=== PATIENT | female | born 1945 | race Caucasian/White ===

== ENCOUNTER 2020-07-23 06:30 | Outpatient (REF) | payer OTHER, SELFPAY ==
[2020-07-23 08:21] LABS: Alanine Aminotransferase 8 U/L (0-31); Albumin Level 4.5 g/dL (3.5-5.0); Alkaline Phosphatase 141 U/L (39-117); Anion Gap 12 (12-20); Aspartate Amino Transferase 24 U/L (5-31); Bilirubin Total 0.7 mg/dL (0.0-1.0); Blood Urea Nitrogen 21 mg/dL (9-16); Calcium 9.5 mg/dL (8.4-10.2); Carbon Dioxide 27 mmol/L (22-29); Chloride 108 mmol/L (96-108); Cholesterol 179 mg/dL; Estimated Glomerular Filt Rate > 60; Glucose Random 95 mg/dL (60-115); HDL Cholesterol 31 mg/dL; LDL Cholesterol Calculated 121 mg/dl; Potassium 3.9 mmol/L (3.3-5.1); Sodium 143 mmol/L (135-145); Total Protein 6.6 g/dL (6.5-8.0); Triglycerides 137 mg/dL
[2020-07-23 08:43] LABS: Free T4 (Free Thyroxine) 0.98 ng/dL (0.71-1.85); Thyroid Stimulating Hormone 1.92 uIU/mL (0.32-4.0)
== END 2020-07-23 06:31 | disposition home or self-care (01) ==
LOC: HO.LAB 06:30
PROVIDERS: PCP Family Medicine; Visit Provider Nurse Practitioner Family
DX: E78.5 Hyperlipidemia, unspecified (principal); E03.9 Hypothyroidism, unspecified
CPT/HCPCS: 36415; 80053; 80061; 84439; 84443

== ENCOUNTER 2020-08-26 08:23 | Outpatient (REF) | payer OTHER, SELFPAY ==
--- NOTE | ~2020-08-26 | MM_ITS ---
EXAMINATION: MM SCREENING DIGITAL BREAST TOMOSYNTHESIS, BILATERAL CLINICAL INFORMATION: Screening. Asymptomatic. The lifetime risk of breast cancer based on the Tyrer-Cuzick Model is 2%. COMPARISON: Mammography: 08/07/2019, 07/31/2018, 06/29/2017, 06/08/2016 TECHNIQUE: Digital breast tomosynthesis is performed in both the craniocaudal and mediolateral oblique views along with computer-aided detection (CAD). Synthesized 2D images are generated from the tomosynthesis. FINDINGS: There are scattered areas of fibroglandular density (ACR BI-RADS breast composition Category b). Parenchymal pattern is similar to prior studies. There is no developing density or interval mass or architectural abnormality. No abnormal calcifications. The axilla and skin contours are unremarkable. No significant changes. MM/MM tomosynthesis screening BI IMPRESSION: No mammographic evidence of malignancy. ASSESSMENT: BI-RADS 1: Negative RECOMMENDATION: Routine annual mammography screening. This patient's information was entered into a reminder system with a target due date for their next mammogram.
--- NOTE | ~2020-08-26 | MM_ITS ---
EXAMINATION: BONE DENSITOMETRY CLINICAL INDICATION: Disorders of bone density and structure. COMPARISON: Baseline BD dated 08/25/2018. TECHNIQUE: Using a [employer] DXA System (software version: 13.1) manufactured by [employer], dual-energy x-ray absorptiometry was performed of the lumbar spine and left hip. The images are of good technical quality. Summary results are attached. FINDINGS: AP SPINE L1-L4: Current: BMD 0.989 g/cm2, Z-score 0.1, T-score -1.6, osteopenia, 4.2% decrease from baseline (<5% change is not significant). Baseline: BMD 1.032 g/cm2. LEFT FEMUR, NECK: Current: BMD 1.044 g/cm2, Z-score 1.9, T-score 0.0, normal. Baseline: BMD 1.047 g/cm2. LEFT FEMUR, TOTAL: Current: BMD 1.028 g/cm2, Z-score 1.8, T-score 0.2, normal, 0.8% decrease from baseline (<5% change is not significant). Baseline: BMD 1.036 g/cm2. IDENTIFIED RISK FACTORS: Early menopause, secondary osteoporosis, hysterectomy, bilateral oophorectomy. HISTORY OF FRACTURE: None listed. MEDICATIONS: Calcium supplements or multivitamin, vitamin D. MM/XR DEXA axial skeleton IMPRESSION: 1. DIAGNOSIS: Osteopenia based on the lowest T-score value of -1.6 in the lumbar spine applying World Health Organization criteria. 2. 10-YEAR FRACTURE RISK PREDICTION, FRAX: Major osteoporotic fracture (clinical spine, forearm, hip or shoulder) 6.7%. Hip fracture 0.5%. 3. Treatment Recommendations: NOF guidelines recommend consideration for treatment in postmenopausal women and men age 50 and older presenting with the following: -A hip or vertebral (clinical or morphometric) fracture. -T-score less than or equal to -2.5 at the femoral neck or spine after appropriate evaluation to exclude secondary causes. -Low bone mass at the hip or spine and a 10-year fracture probability by FRAX of greater than or equal to 3% for hip fracture or greater than or equal to 20% for major osteoporotic fracture based on the [place] adapted WHO algorithm. 4. Other Recommendations: All treatment decisions require clinical judgment and consideration of individual patient factors, including patient preferences, comorbidities, previous drug use, risk factors not captured in the FRAX model (e.g. frailty, falls, vitamin D deficiency, increased bone turnover, interval significant decline in bone density) and possible under or overestimation of fracture risk by FRAX. Additional medical evaluation for secondary cause of low bone mineral density may be appropriate. FUTURE SCAN RECOMMENDATION: People with diagnosed cases of osteoporosis or at high risk for fracture should have regular bone mineral density tests. For patients eligible for Medicare, routine testing is allowed once every 2 years. The testing frequency can be increased to one year for patients who have rapidly progressing disease, those who are receiving or discontinuing medical therapy to restore bone mass, or have additional risk factors.
== END 2020-08-26 08:24 | disposition home or self-care (01) ==
LOC: HO.MAMMO 08:23
PROVIDERS: Visit Provider Nurse Practitioner Family
DX: Z12.31 Encounter for screening mammogram for malignant neoplasm of breast (principal); Z13.820 Encounter for screening for osteoporosis; M85.80 Other specified disorders of bone density and structure, unspecified site; Z78.0 Asymptomatic menopausal state; Z98.890 Other specified postprocedural states; Z79.899 Other long term (current) drug therapy
CPT/HCPCS: 77063; 77067; 77080

== ENCOUNTER 2021-05-07 09:31 | Outpatient (REF) | payer OTHER, SELFPAY ==
[2021-05-07 11:35] LABS: Appearance Urine CLEAR; Color Urine YELLOW; Glucose Urine UA NEG (NEG); Leukocyte Esterase Urine TRACE (NEG); Nitrite Urine NEG (NEG); Specific Gravity - Urine <= 1.005 (1.005-1.025); Urine Blood NEG (NEG); Urine Ketones NEG (NEG); Urine Protein NEG (NEG-TRACE)
[2021-05-07 12:08] LABS: RBC Urine 0 /HPF (0); Squamous Epithelial Cell Urine TRACE /LPF; WBC Urine 0-2 /HPF (0-4)
== END 2021-05-07 09:32 | disposition home or self-care (01) ==
LOC: HO.LAB 09:31
PROVIDERS: PCP Family Medicine; Visit Provider Urology
DX: N39.0 Urinary tract infection, site not specified (principal)
CPT/HCPCS: 81001; 87086

== ENCOUNTER 2021-05-13 07:30 | Outpatient (REF) | payer OTHER, SELFPAY ==
[2021-05-13 08:58] LABS: Alanine Aminotransferase 14 U/L (0-31); Albumin Level 4.4 g/dL (3.5-5.0); Alkaline Phosphatase 128 U/L (39-117); Anion Gap 11 (12-20); Aspartate Amino Transferase 27 U/L (5-31); Bilirubin Total 0.6 mg/dL (0.0-1.0); Blood Urea Nitrogen 22 mg/dL (9-16); Calcium 9.5 mg/dL (8.4-10.2); Carbon Dioxide 26 mmol/L (22-29); Chloride 109 mmol/L (96-108); Cholesterol 167 mg/dL; Estimated Glomerular Filt Rate 59; Glucose Random 97 mg/dL (60-115); HDL Cholesterol 32 mg/dL; LDL Cholesterol Calculated 115 mg/dl; Potassium 4.2 mmol/L (3.3-5.1); Sodium 142 mmol/L (135-145); Total Protein 6.4 g/dL (6.5-8.0); Triglycerides 100 mg/dL
[2021-05-13 09:09] LABS: Thyroid Stimulating Hormone 3.99 uIU/mL (0.32-4.0)
== END 2021-05-13 07:31 | disposition home or self-care (01) ==
LOC: HO.LAB 07:30
PROVIDERS: PCP Family Medicine; Visit Provider Nurse Practitioner Family
DX: E03.9 Hypothyroidism, unspecified (principal)
CPT/HCPCS: 36415; 80053; 80061; 84443

== ENCOUNTER 2021-08-27 08:29 | Outpatient (REF) | payer OTHER, SELFPAY ==
--- NOTE | ~2021-08-27 | MM_ITS ---
EXAMINATION: MM SCREENING DIGITAL BREAST TOMOSYNTHESIS, BILATERAL CLINICAL INFORMATION: Screening. Asymptomatic. The lifetime risk of breast cancer based on the Tyrer-Cuzick Model is 2%. COMPARISON: Mammography: August 26, 2020 and studies dating back to October 31, 2013 TECHNIQUE: Digital breast tomosynthesis is performed in both the craniocaudal and mediolateral oblique views along with computer-aided detection (CAD). Synthesized 2D images are generated from the tomosynthesis. FINDINGS: There are scattered areas of fibroglandular density (ACR BI-RADS breast composition Category b). There are no significant masses, abnormal calcifications, or other abnormalities. MM/MM tomosynthesis screening BI IMPRESSION: There are no significant changes from prior study. ASSESSMENT: BI-RADS 1: Negative RECOMMENDATION: Routine annual mammography screening. This patient's information was entered into a reminder system with a target due date for their next mammogram.
== END 2021-08-27 08:30 | disposition home or self-care (01) ==
LOC: HO.MAMMO 08:29
PROVIDERS: Visit Provider Psychiatry & Neurology Psychiatry
DX: Z12.31 Encounter for screening mammogram for malignant neoplasm of breast (principal)
CPT/HCPCS: 77063; 77067

== ENCOUNTER 2021-10-08 06:30 | Outpatient (REF) | payer OTHER, SELFPAY ==
[2021-10-08 07:37] LABS: Hematocrit 34.4 % (37.0-47.0); Hemoglobin 9.8 g/dl (12.0-16.0); Mean Corpuscular HGB Conc 28.5 g/dl (31.0-35.0); Mean Corpuscular Hemoglobin 26.1 pg (27.0-33.0); Mean Corpuscular Volume 91.7 fL (80.0-98.0); Red Blood Count 3.75 X10*6/uL (4.20-5.50); Red Cell Distribution Width 19.8 % (11.0-16.0)
[2021-10-08 07:51] LABS: WBC ABN SCTR FOR CBC 1
[2021-10-08 07:56] LABS: Alanine Aminotransferase 10 U/L (0-31); Albumin Level 4.4 g/dL (3.5-5.0); Alkaline Phosphatase 129 U/L (39-117); Anion Gap 16 (12-20); Aspartate Amino Transferase 23 U/L (5-31); Bilirubin Total 0.7 mg/dL (0.0-1.0); Blood Urea Nitrogen 21 mg/dL (9-16); Calcium 9.3 mg/dL (8.4-10.2); Carbon Dioxide 24 mmol/L (22-29); Chloride 108 mmol/L (96-108); Cholesterol 185 mg/dL; Estimated Glomerular Filt Rate 55; Glucose Fasting 112 mg/dL (60-99); HDL Cholesterol 30 mg/dL; LDL Cholesterol Calculated 129 mg/dl; Sodium 144 mmol/L (135-145); Total Protein 6.4 g/dL (6.5-8.0); Triglycerides 132 mg/dL
[2021-10-08 08:06] LABS: Thyroid Stimulating Hormone 3.62 uIU/mL (0.32-4.0)
[2021-10-08 08:42] LABS: Appearance Urine Turbid; Color Urine Yellow; Glucose Urine UA Negative (Negative); Leukocyte Esterase Urine Negative (Negative); Nitrite Urine Negative (Negative); PH 5.5 (5.0-9.0); Urine Blood Negative (Negative); Urine Ketones Negative (Negative); Urine Protein Negative (Neg-Trace)
[2021-10-08 09:06] LABS: Atypical Lymphs Percent Manual 11 % (0-6); Eosinophils Percent Manual 2 % (0-4); Lymphocytes Percent Manual 84 % (20-40); Neutrophils Percent Manual 3 % (45-73)
[2021-10-08 09:07] LABS: Band Neutrophils Percent 0 % (3-5); RBC Morphology NOTED
[2021-10-08 09:08] LABS: Ovalocytes 1+ (5-14) /OIF; Schistocytes 1+ (0-2) /OIF
[2021-10-08 09:10] LABS: Burr Cells 2+ (3-5) /OIF; Macrocytosis 1+ (5-14) /OIF; Microcytosis 1+ (5-14) /OIF; Smudge Cells PRESENT
[2021-10-08 09:11] LABS: Platelet Estimate DECREASED (NORMAL); Platelet Morphology Comment NORMAL
[2021-10-08 09:20] LABS: Atypical Lymph Absolute Manual 28.3 x10*3/uL; Eosinophils Absolute Manual 5.2 X10*3/uL (0.0-0.4); Lymphocytes Absolute Manual 216.4 X10*3/uL (1.2-4.9); Neutrophils Absolute Manual 7.7 X10*3/uL (2.0-8.3)
[2021-10-08 09:21] LABS: Platelet Count 145 X10*3/uL (160-400)
[2021-10-08 09:30] LABS: Creatinine Urine 200.91 mg/dL; Microalbum/Creatinine Ratio Ur 8.4 ug/mg cr
[2021-10-08 09:35] LABS: White Blood Count 257.6 X10*3/uL (4.8-10.8)
[2021-10-09 23:27] LABS: Triiodothyronine T3 Total 91 ng/dL (76-181)
== END 2021-10-08 06:31 | disposition home or self-care (01) ==
LOC: HO.LAB 06:30
PROVIDERS: PCP Family Medicine; Visit Provider Family Medicine
DX: Z00.00 Encounter for general adult medical examination without abnormal findings (principal); I10 Essential (primary) hypertension; E03.9 Hypothyroidism, unspecified
CPT/HCPCS: 36415; 80053; 80061; 81003; 82043; 84439; 84443; 84480; 85007; 85025; 85027

== ENCOUNTER → 2021-10-26 08:23 | Outpatient (REF) | payer OTHER, SELFPAY ==
--- NOTE | 2021-10-26 08:26 | CA_ITS ---
Transthoracic Echocardiogram Patient (Last, First, Middle): Jackie Elizondo, Gender: Female Date of : 1945 Age: 76 Procedure Date: 10/26/2021 Procedure Type: Transthoracic Echocardiogram Location: OP Height: 172.72 cm Weight: 65.32 kg BSA: 1.78 m2 Heart Rate: bpm BP: 125 / 75 mmHg In Shop Service Technician: JOSH Referring MD: Madhu Zimmerman MD Symptoms: R01.1 - Cardiac murmur, unspecified Study Quality: Fair ECG Rhythm: Sinus tachycardia Conclusions: - The left ventricular systolic function is severely decreased. The visually estimated ejection fraction is between 25-30%. - There is evidence of regional wall motion abnormalities. - The left atrium is severely dilated. - There is mild to moderate mitral valve regurgitation. Findings Procedure Information Contrast agent, definity, is being given per protocol without apparent complications. Left Ventricle Normal left ventricular cavity size. There is mildly increased left ventricular wall thickness. The left ventricular systolic function is severely decreased. The visually estimated ejection fraction is between 25 30%. There is evidence of regional wall motion abnormalities. There is moderate global hypokinesis. Wall Motion Rest Echo Findings The inferoseptal wall, the basal inferior, mid inferior, basal anteroseptal, and mid anteroseptal segments are akinetic. Right Ventricle Normal right ventricular cavity size and systolic function. Atria The left atrium is severely dilated. The right atrium is normal in size. Aortic Valve The aortic valve was not well visualized. There is no aortic valve stenosis. There is no aortic valve regurgitation. Mitral Valve There is mild anterior and posterior mitral leaflet thickening. There is mild to moderate mitral valve regurgitation. There is no mitral valve stenosis. Pulmonic Valve The pulmonic valve is likely normal. Tricuspid Valve There is trace tricuspid valve regurgitation. The pulmonary artery systolic pressure is normal. Great Vessels The asc aorta is normal in size. Venous The inferior vena cava is normal in size and collapses less than 50% with inspiration. Pericardium/Pleural There is no evidence of pericardial effusion. Prior Study Comparison Significant changes compared to prior study dated: 04/15/2017. Decrease in LVEF. See comments on wall motion. Measurements 2D Linear Measurements IVSd: 1.08 0.6-0.9/0.6-1.0 cm LVIDd: 4.77 3.9-5.3/4.2-5.9 cm LVIDd Index: 2.68 2.4-3.2/2.2-3.1 cm/m2 LVIDs: 4.00 2.0-3.6 cm LVPWd: 1.03 0.7-1.1 cm LA Diam: 4.40 2.7-3.8/3.0-4.0 cm LAIDs Index: 2.47 1.5-2.3 cm/m2 LV Mass: 225.81 67-162/88-224 g LV Mass Index: 126.86 43-95/49-115 g/m2 LVOT Diam: 2.10 3.0+(-)1.3 cm 2D Systolic Function EF 4C: 41.80 >55% EF 2C: 43.60 >55% EF BiP: 42.40 >55% Mitral Valve E'Lateral: 12.00 E'Medial: 10.80 MR Vol - PW Dopp: 21.30 MR VTI: 2.13 MR ERO: 10.00 MR Alias Bari: 0.40 MR RAD: 0.50 Aortic Valve AoV Pk Bari: 1.85 AoV Mn Bari: 1.30 AoV VTI: 0.35 AoV Pk Grad: 14.00 Aov Mn Grad: 8.00 RACHID Cont.VTI: 2.00 LVOT LVOT Pk Bari: 1.12 LVOT Mn Bari: 0.75 LVOT VTI: 0.20 LVOT Pk Grad: 5.00 LVOT Mn Grad: 3.00 LVOT Diam: 2.10 LVOT Area: 3.46 Diastolic Function E'Medial: 10.80 E' Laterial: 12.00 Right Ventricle TAPSE (mm): 24.00 TVS' Bari: 20.00 Tricuspid Valve TR Pk Bari: 2.00 TR Pk Grad: 16.00 RA Press: 3.00 RVSP: 19.00 Great Vessels Aorta Ao Asc: 3.50 2.1-3.4 cm Updated in Other Vendor System with Status of Final Dylon Oscar MD electronically signed on 10/26/2021 11:02:06 AM with status of Final
== END ==
LOC: HO.CARD 08:23
PROVIDERS: PCP Family Medicine; Visit Provider Family Medicine
DX: R01.1 Cardiac murmur, unspecified (principal)
CPT/HCPCS: 93306; Q9957

== ENCOUNTER → 2021-11-03 11:03 | Outpatient (BNVA) | payer OTHER, SELFPAY | PROVIDERS: PCP Family Medicine; Referring Provider Family Medicine; Visit Provider Internal Medicine | DX: I42.9 Cardiomyopathy, unspecified (principal); I34.0 Nonrheumatic mitral (valve) insufficiency; I44.7 Left bundle-branch block, unspecified | CPT/HCPCS: 99202 ==

== ENCOUNTER → 2021-12-15 07:35 | Outpatient (REF) | payer OTHER, SELFPAY ==
--- NOTE | ~2021-12-15 | NM_ITS ---
Myocardial perfusion study Indication: Cardiomyopathy to evaluate for myocardial ischemia Technique: The patient was brought in for a Lexiscan perfusion study on 12/15/2021. Patient performed low-level exercise and was injected 0.4 mg of Lexiscan intravenously. Within a minute of injection, 24 mCi of sestamibi was given intravenously. Images were obtained using the SPECT gamma camera interlaced with the gating device. Images were obtained in supine position. Resting perfusion study was performed on 12/15/2021. Patient was administered 8 mCi of sestamibi intravenously at rest. Images were then obtained in supine position. Images obtained with and without CT attenuation. Total DLP 69 mGy-cm. Images were processed with the software and compared side to side in short axis, horizontal long axis and vertical long axis views. Findings: The stress perfusion study showed non attenuated images show normal uptake of radiotracer in all segments of LV myocardium. Attenuation corrected images show minimal thinning of the distal septum of the LV. The gated study shows normal LV systolic function with calculated LVEF of 57%. LV cavity is mildly dilated size. The gated study shows normal systolic wall thickening and contraction of segments. Resting study shows no significant change in perfusion pattern compared to stress perfusion study. Gating at rest reveals systolic wall motion with ejection fraction at 50%. The findings are consistent with normal myocardial perfusion. NM/NM golden perf SPECT rest & str Impression: 1. Myocardial perfusion imaging study shows normal myocardial perfusion 2. Gated LVEF is 57% 3. Transient ischemic dilatation not present EKG is nondiagnostic for ischemia
--- NOTE | 2021-12-15 07:39 | CA_ITS ---
Acquisition Time: 2021-12-15 08:38:00 Total Exercise Time: 00:02:00 Test Indications: ABN ECHO Medications: SIMVASTATIN LEVOTHYROXINE LYSINE Protocol: LEXISCAN Max HR: 123 BPM 84% of Pred: 145 BPM Max BP: 146/072 mmHG Max Work Load: 1.0 METS Pharmacological stress test with Lexiscan injection, while sitting and not moving, without anginal symptoms, with isolated PVCs ( less PVCs noted at higher heart rates) with normotensive response to injection, with heart rate rise to 84% MPHR post injection, with nondiagnostic EKG for ischemia. In recovery she reported headache that was treated with Aminophylline 75mg IVP to reverse Lexiscan with resolution of symptom. Nuclear images pending. Test reviewd with Dr Fleming. Referred By: Dylon Oscar Overread By: FLORIN BRISCOE
== END ==
LOC: HO.CARD 07:35
PROVIDERS: PCP Family Medicine; Visit Provider Internal Medicine
DX: I42.9 Cardiomyopathy, unspecified (principal)
CPT/HCPCS: 78452; 93017; A9500; J0280; J2785

== ENCOUNTER → 2021-12-24 12:28 | Outpatient (BNVA) | payer OTHER, SELFPAY | PROVIDERS: PCP Family Medicine; Referring Provider Family Medicine; Visit Provider Internal Medicine | DX: I42.9 Cardiomyopathy, unspecified (principal); I34.0 Nonrheumatic mitral (valve) insufficiency; I44.7 Left bundle-branch block, unspecified; I10 Essential (primary) hypertension | CPT/HCPCS: 99212 ==

== ENCOUNTER → 2022-05-17 08:57 | Outpatient (BNVA) | payer OTHER, SELFPAY | PROVIDERS: PCP Family Medicine; Referring Provider Family Medicine; Visit Provider Internal Medicine | DX: I42.9 Cardiomyopathy, unspecified (principal); I34.0 Nonrheumatic mitral (valve) insufficiency; I44.7 Left bundle-branch block, unspecified; I10 Essential (primary) hypertension; Z79.899 Other long term (current) drug therapy | CPT/HCPCS: 99212 ==

== ENCOUNTER 2022-05-24 10:27 | Outpatient (REF) | payer OTHER, SELFPAY ==
[2022-05-24 14:18] LABS: Appearance Urine Clear; Color Urine Dark Yellow; Glucose Urine UA Negative (Negative); Leukocyte Esterase Urine Negative (Negative); Nitrite Urine Negative (Negative); PH 6.5 (5.0-9.0); Urine Blood Negative (Negative); Urine Ketones Negative (Negative); Urine Protein Negative (Neg-Trace)
[2022-05-24 14:38] LABS: Alanine Aminotransferase 15 U/L (0-31); Albumin Level 4.6 g/dL (3.5-5.0); Alkaline Phosphatase 139 U/L (39-117); Anion Gap 11 (12-20); Aspartate Amino Transferase 27 U/L (5-31); Bilirubin Total 0.6 mg/dL (0.0-1.0); Blood Urea Nitrogen 22 mg/dL (9-16); Calcium 9.7 mg/dL (8.4-10.2); Carbon Dioxide 27 mmol/L (22-29); Chloride 108 mmol/L (96-108); Estimated Glomerular Filt Rate 55; Glucose Random 110 mg/dL (60-115); Potassium 4.4 mmol/L (3.3-5.1); Sodium 142 mmol/L (135-145); Total Protein 6.3 g/dL (6.5-8.0)
== END 2022-05-24 10:28 | disposition home or self-care (01) ==
LOC: HO.WFDLDS 10:27
PROVIDERS: Visit Provider Family Medicine
DX: Z00.00 Encounter for general adult medical examination without abnormal findings (principal); I10 Essential (primary) hypertension
CPT/HCPCS: 36415; 80053; 81003

== ENCOUNTER → 2022-06-11 07:58 | Outpatient (REF) | payer OTHER, SELFPAY ==
--- NOTE | 2022-06-11 08:00 | CA_ITS ---
Transthoracic Echocardiogram Patient (Last, First, Middle): Jackie Elizondo, Gender: Female Date of : 1945 Age: 76 Procedure Date: 06/11/2022 Procedure Type: Transthoracic Echocardiogram Location: OP Height: 172.72 cm Weight: 67.13 kg BSA: 1.80 m2 Heart Rate: 73 bpm BP: 135 / 75 mmHg Safety Analyst: WALDEMAR Friend MD: Dylon Oscar MD Associate Software Developer: Felton Louis MD Symptoms: I42.9 - Cardiomyopathy, unspecified Study Quality: Good ECG Rhythm: Arrhythmia Conclusions: - 1. Punc-ih-jhaomvnd LV systolic dysfunction with LVEF of 40-45% with impaired relaxation filling pattern 2. Mildly dilated left atrium 3. Rueb-yp-enjzkwgj mitral regurgitation 4. Normal RV systolic pressure 5. Upper limits of normal ascending aortic size 6. No gross pericardial effusion Findings Left Ventricle Normal left ventricular cavity size. There is normal left ventricular wall thickness. The left ventricular systolic function is mild to moderately decreased. The visually estimated ejection fraction is between 40-45%. Spectral Doppler is indicative of an impaired relaxation filling pattern. E/E prime ratio is between 8 and 15 consistent with indeterminate filling pressures. Wall Motion Rest Echo Findings The apex segment is hypokinetic. The inferoseptal wall, inferior wall, and apical septum segment are akinetic. All other scored wall segments showed normal motion. Right Ventricle Normal right ventricular cavity size and systolic function. Atria The left atrium is mildly dilated. There is no evidence of interatrial shunt. The right atrium is normal in size. Aortic Valve The aortic valve structure and function is likely normal. There is no aortic valve stenosis. There is no aortic valve regurgitation. Mitral Valve There is mild anterior and posterior mitral leaflet thickening. The posterior mitral leaflet has restricted mobility. There is mild to moderate mitral valve regurgitation. There is no mitral valve stenosis. Pulmonic Valve The pulmonic valve was not well visualized. Tricuspid Valve Likely normal tricuspid valve structure and function. There is mild tricuspid valve regurgitation. The right ventricular systolic pressure is 15 mmHg. Normal right atrial pressure. There is no evidence of pulmonary hypertension. Great Vessels The pulmonary artery was not well visualized. Venous The inferior vena cava is normal in size and collapses greater than 50% with inspiration. Pericardium/Pleural There is no evidence of pericardial effusion. Prior Study Comparison Changes noted compared to prior study dated: 10/26/2021. LV systolic function has improved. Left atrium is mildly dilated. Measurements 2D Linear Measurements IVSd: 1.02 0.6-0.9/0.6-1.0 cm LVIDd: 4.62 3.9-5.3/4.2-5.9 cm LVIDd Index: 2.57 2.4-3.2/2.2-3.1 cm/m2 LVIDs: 3.37 2.0-3.6 cm LVPWd: 1.02 0.7-1.1 cm LA Diam: 3.10 2.7-3.8/3.0-4.0 cm LAIDs Index: 1.72 1.5-2.3 cm/m2 LV Mass: 204.67 67-162/88-224 g LV Mass Index: 113.71 43-95/49-115 g/m2 LVOT Diam: 2.10 3.0+(-)1.3 cm Mitral Valve MV Pk E: 0.94 MV PK A: 1.26 MV Decel Time: 271.00 E/A: 0.70 E'Lateral: 6.96 E'Medial: 4.13 E/E' Med: 22.60 E/E' Lat: 13.40 PHT: 80.00 MVA PHT: 2.75 Decel Borden: 3.45 MR Vol - PW Dopp: 15.12 MR VTI: 2.16 MR ERO: 7.00 MR Alias Bari: 0.39 MR RAD: 0.40 Aortic Valve AoV Pk Bari: 1.76 AoV Mn Bari: 1.23 AoV VTI: 0.40 AoV Pk Grad: 12.00 Aov Mn Grad: 7.00 RACHID Cont.VTI: 2.21 LVOT LVOT Pk Bari: 1.04 LVOT Mn Bari: 0.77 LVOT VTI: 0.25 LVOT Pk Grad: 4.00 LVOT Mn Grad: 3.00 LVOT Diam: 2.10 LVOT Area: 3.46 Diastolic Function MV Pk E: 0.94 MV Pk A: 1.26 E/A: 0.70 E'Medial: 4.13 E/E' Med: 22.60 E' Laterial: 6.96 E/E' Lat: 13.40 Right Ventricle TAPSE (mm): 31.70 Tricuspid Valve TR Pk Bari: 1.71 TR Pk Grad: 12.00 RA Press: 3.00 RVSP: 15.00 Great Vessels Aorta Sinus of Valsalva: 3.50 2.0-3.5 cm Ao Asc: 3.70 2.1-3.4 cm Pulmonary Valve PV Pk Bari: 1.17 Peak PV Grad: 5.00 Updated in Other Vendor System with Status of Final Felton Louis MD electronically signed on 06/13/2022 12:22:15 PM with status of Final
== END ==
LOC: HO.CARD 07:58
PROVIDERS: PCP Family Medicine; Visit Provider Internal Medicine
DX: I42.9 Cardiomyopathy, unspecified (principal)
CPT/HCPCS: 93306

== ENCOUNTER 2022-08-16 09:26 | Outpatient (AMB) | payer OTHER, SELFPAY ==
[2022-08-16 10:07] VITALS: BP 150/80; PULSE 78; BMI 20.7
--- NOTE | 2022-08-16 10:07 | MHC.OFFVIS ---
Intake Vital Signs 08/16/22 10:07 Height 5 ft 8 in Weight 136 lb 0.403 oz BMI 20.7 BP 150/80 H Blood Pressure Location Lt brachial Position Sitting Pulse 78 Intake Visit Reasons: follow-up after echo Intake Note: follow up w/ EKG [employer] Required: No Accompanied by: Self / Same As Patient Allergies acetaminophen [Vicodin] Allergy (Unknown, Verified 08/16/22 10:08) nausea and vomiting hydrocodone [Vicodin] Allergy (Unknown, Verified 08/16/22 10:08) nausea and vomiting penicillin V Allergy (Unknown, Verified 08/16/22 10:08) nausea and vomiting Codeine Sulfate Allergy (Unknown, Uncoded 08/16/22 10:08) nausea and vomiting Pentothal Allergy (Unknown, Uncoded 08/16/22 10:08) nausea and vomiting Medication List - Last Reconciled 08/16/22 by Dylon Oscar MD calcium citrate-vitamin D3 315 mg-6.25 mcg (250 unit) (Citracal + Vitamin D Maximum) 1 tab PO DAILY carvedilol (Coreg) 3.125 mg PO BID 90 days levothyroxine 50 mcg PO DAILY 90 days lysine 1,000 mg PO DAILY sacubitril-valsartan 24-26 mg (Entresto) 1 tab PO BID 90 days simvastatin 40 mg PO DAILY 90 days HPI HPI Comments History of Present Illness Details Jackie returns for follow-up regarding cardiomyopathy. She was diagnosed with cardiomyopathy in 2021, after getting echocardiogram done for question of cardiac murmur. She has a history of CLL and being followed by Hematology at [facility]. She also has a history of bladder cancer under control. Generally, no specific complaints. No angina or shortness of breath. Nonspecific tiredness. Blood pressure goes up here but she states it is all from anxiety. [facility] Medical History Benign pigmented skin lesion Bladder cancer Chronic lymphocytic leukemia Surgical History History of appendectomy History of hysterectomy Family History Father No problems noted. Mother No problems noted. Social History Housing: Apartment Patient Tobacco Use Status: Never used Tobacco e-Cigarette/Vaping Use: Never Used Second Hand Smoke Exposure: No service: No Current occupational status: unemployed Current occupational exposures/hazards: No Review of Systems Const Denies weakness ENT Denies dizziness Card Denies chest pain, Denies chest pain with activity, Denies syncope, Denies rapid heart rate, Denies pedal edema, Denies edema, Denies leg edema, Denies lightheadedness, Denies palpitations, Denies dyspnea, Denies dyspnea on exertion and Denies orthopnea Resp Denies cough, Denies dyspnea and Denies dyspnea on exertion GI Denies hematochezia and Denies change in stool character Musc Denies abnormal gait, Denies muscle cramps, Denies muscle weakness, Denies numbness, Denies radiating pain into limb and Denies tingling Neuro Denies abnormal gait, Denies dizziness, Denies syncope, Denies numbness, Denies tingling and Denies weakness Endo Denies palpitations Physical Exam Vital Signs: Last Vital Signs Pulse 78 08/16/22 10:07 BP 150/80 H 08/16/22 10:07 BMI result Body Mass Index 20.7 Const General: comfortable and no acute distress Orientation/consciousness: patient oriented x3 HEENT Other: Unremarkable Head: Yes normal to inspection Neck Neck: Yes normal visual inspection Chest Chest palpation & inspection: normal inspection of the chest Resp Auscultation: clear to auscultation bilaterally Cardio Palpation: normal PMI Heart sounds: S1 normal heart sound present, S2 normal heart sound present, no gallops, no murmurs and no rubs GI Palpation (GI): Soft to palpation Back/Spine/Pelvis Other: unremarkable Skin General skin exam: no rashes or lesions noted Neuro General: patient oriented x3 Extrem General: Yes normal to inspection Psych Mental Status: mental status grossly normal Office Procedures EKG Details: EKG with sinus rhythm at 78/Min; slight CT prolongation 240 millisecond; left bundle-branch block pattern; PVCs. [id number], Complete Assessment & Plan Assessment & Plan (1) Cardiomyopathy: Code(s): I42.9 - Cardiomyopathy, unspecified Plan: Most recent echocardiogram with LVEF of 40-45%. Prior to that 25-30%. In the prior echocardiogram from 2018, LVEF was 60-65%. Myocardial perfusion imaging study shows normal perfusion. We will obtain cardiac MRI for further evaluation. Otherwise, continue Coreg and Entresto. We will increase Entresto dosing. Check BMP few days after the dose change. She is only complaining a lot tiredness and fatigue and hence not adding additional medications like spironolactone. No need for diuretics as there is no volume overload. (2) Nonrheumatic mitral valve regurgitation: Code(s): I34.0 - Nonrheumatic mitral (valve) insufficiency Plan: Echocardiogram shows [id number] mitral regurgitation. No specific interventions. (3) LBBB (left bundle branch block): Code(s): I44.7 - Left bundle-branch block, unspecified Plan: Chronic finding. (4) Essential hypertension: Code(s): I10 - Essential (primary) hypertension Plan: She believes there is all from extreme anxiety. Any case, increase in Entresto should help. Orders: Orders MR cardiac morph fnct w con Today I42.9 - Cardiomyopathy, unspecified Medications: New sacubitril-valsartan 49-51 mg (Entresto) 1 tab PO BID 180 tabs 3RF 90 days Discontinued sacubitril-valsartan 24-26 mg (Entresto) Discontinued Reason: Doctor's Order 1 tab PO BID 90 days 180 tabs 3RF Coding Level of Care Code Est Pt Level 4 (98691) Diagnoses Cardiomyopathy I42.9 Nonrheumatic mitral valve regurgitation I34.0 LBBB (left bundle branch block) I44.7 Essential hypertension I10 CPT Codes EKG - CPT: 59202-[id number], Complete ([id number])
== END 2022-08-16 10:29 | disposition home or self-care (01) ==
PROVIDERS: Visit Provider Internal Medicine
DX: I42.9 Cardiomyopathy, unspecified (principal); I34.0 Nonrheumatic mitral (valve) insufficiency; I44.7 Left bundle-branch block, unspecified; I10 Essential (primary) hypertension
CPT/HCPCS: 93010; 99214

== ENCOUNTER → 2022-08-16 09:26 | Outpatient (BNVA) | payer OTHER, SELFPAY | PROVIDERS: Visit Provider Internal Medicine | DX: I42.9 Cardiomyopathy, unspecified (principal); I34.0 Nonrheumatic mitral (valve) insufficiency; I44.7 Left bundle-branch block, unspecified; I10 Essential (primary) hypertension | CPT/HCPCS: 93005; 99212 ==

== ENCOUNTER 2022-08-23 08:47 | Outpatient (AMB) | payer OTHER, SELFPAY ==
[2022-08-23 09:05] VITALS: BP 140/78; PULSE 75; O2SAT 95; BMI 20.4
--- NOTE | 2022-08-23 09:05 | A.OFFPC_ITS ---
Vital Signs 08/23/22 09:05 Height 5 ft 8 in Weight 134 lb 6 oz BMI 20.4 BP 140/78 H Blood Pressure Location Lt brachial Position Sitting Pulse 75 Pulse Source Pulse Oximeter Pulse Oximetry (%) 95 Oxygen Delivery Method Room Air Intake Visit Reasons: f/u hypertension and chronic conditions Intake Note: Patient is here to follow up on hypertension and other chronic conditions. Allergies acetaminophen [Vicodin] Allergy (Unknown, Verified 08/23/22 09:09) nausea and vomiting hydrocodone [Vicodin] Allergy (Unknown, Verified 08/23/22 09:09) nausea and vomiting penicillin V Allergy (Unknown, Verified 08/23/22 09:09) nausea and vomiting Codeine Sulfate Allergy (Unknown, Uncoded 08/23/22 09:09) nausea and vomiting Pentothal Allergy (Unknown, Uncoded 08/23/22 09:09) nausea and vomiting Tobacco use date assessed: 08/23/22 Fall risk assessment: No Falls in past year Last assessed Fall Risk: 08/23/22 Dental Screening Dental Screen Date: 08/23/22 Did you have a dental visit in the last 12 months?: No Did you have a dental problem in the last 6 months where you did not have access to dental care?: No Was dental information given to patient?: No HPI f/u hypertension and chronic conditions HPI Details 76 y/o female presents to f/u hypertension and chronic conditions. Pt has documented white coat syndrome. Blood pressure today 140/78. She is on Entresto and carvedilol 3.125 mg b.i.d. She had seen Cardiology 08/16/22 and they had increased her Entresto. She reports that sometimes when she gets up and open her curtains, she starts seeing stars and sees black in her scope. She denies feeling dizziness today. She states she tries to keep herself hydrated. HPI Comments History of Present Illness Details Documentation assistance for Madhu Zimmerman MD, was provided by Winston Adame,? Document Processor on 08/23/2022 9:40 AM EST. I, Dr. Zimmerman, have read, observed, and verified documentation.? [facility] Medical History Benign pigmented skin lesion Bladder cancer Chronic lymphocytic leukemia Surgical History History of appendectomy History of hysterectomy Family History Father No problems noted. Mother No problems noted. Social History Housing: Apartment Patient Tobacco Use Status: Never used Tobacco e-Cigarette/Vaping Use: Never Used Second Hand Smoke Exposure: No service: No Current occupational status: retired Current occupational exposures/hazards: No Questionnaire Thrive Questionnaire Date Thrive assessed: 03/22/22 MAGED-7 AMB Questionnaire MAGED-7 Date MAGED - 7 assessed: 03/22/22 Source: Developed by Drs. Alvin Brandon, Jeny Chaidez, Mario Lopez and colleagues, with an educational stalin from [employer]. Physical exam (Primary Care) Vital Signs: Last Vital Signs Pulse 75 08/23/22 09:05 BP 140/78 H 08/23/22 09:05 Pulse Ox 95 08/23/22 09:05 Oxygen Delivery Method Room Air 08/23/22 09:05 BMI result Body Mass Index 20.4 Tobacco/Smoking Status: Tobacco use Status Tobacco use date assessed 08/23/22 08/23/22 09:13 Patient Tobacco Use Status Never used Tobacco 08/23/22 09:13 e-Cigarette/Vaping Use Never Used 08/23/22 09:13 Thrive Assessment: Date of Thrive Assessment Date Thrive assessed 03/22/22 08/23/22 09:13 Assessment and Plan Assessment & Plan (1) Essential hypertension: Code(s): I10 - Essential (primary) hypertension Plan: Blood pressure fairly well controlled. She has some white coat syndrome and she knows that her blood pressures are always very well controlled at home. She has some fatigue and also some symptoms of presyncope. This may be secondary to her beta-chencho when she stands up quickly. Advised she standard more slowly. Squeeze muscles of lower extremities prior to standing up. Sit back down if feeling lightheaded. Hydrate well She will let me or her supervisor [employer] know if this persists (2) Cardiomyopathy: Code(s): I42.9 - Cardiomyopathy, unspecified Plan: Stable. She is on carvedilol and Entresto Continue current medications and follow-up with Cardiology as recommended (3) Pre-syncope: Code(s): R55 - Syncope and collapse Plan: As above, patient notes some lightheadedness and fatigue, particularly when standing up quickly. May be secondary to her beta-chencho Advised precautions as listed above Orders: Orders Basic Metabolic Panel Today I10 - Essential (primary) hypertension, Z00.00 - Encounter for general adult medical examination without abnormal findings Coding Level of Care Code Est Pt Level 3 (09990) Diagnoses Essential hypertension I10 Cardiomyopathy I42.9 Pre-syncope R55
== END 2022-08-23 09:57 | disposition home or self-care (01) ==
PROVIDERS: Visit Provider Family Medicine
DX: I10 Essential (primary) hypertension (principal); I42.9 Cardiomyopathy, unspecified; R55 Syncope and collapse
CPT/HCPCS: 99213

== ENCOUNTER 2022-09-02 07:41 | Outpatient (REF) | payer OTHER, SELFPAY ==
--- NOTE | ~2022-09-02 | MM_ITS ---
EXAMINATION: MM SCREENING DIGITAL BREAST TOMOSYNTHESIS, BILATERAL CLINICAL INFORMATION: Screening. Asymptomatic. The lifetime risk of breast cancer based on the Tyrer-Cuzick Model is 1.5%. COMPARISON: Mammography: 08/27/2021, 08/26/2020, 08/07/2019, and dating back to 2017. TECHNIQUE: Digital breast tomosynthesis is performed in both the craniocaudal and mediolateral oblique views along with computer-aided detection (CAD). Synthesized 2D images are generated from the tomosynthesis. FINDINGS: There are scattered areas of fibroglandular density (ACR BI-RADS breast composition Category b). There are no suspicious masses, suspicious grouped calcifications, or areas of architectural distortion. The parenchymal pattern is stable from prior exams. There are bilateral vascular calcifications. There is a biopsy clip in the central most anterior left breast. MM/MM tomosynthesis screening BI IMPRESSION: No mammographic evidence of malignancy. ASSESSMENT: BI-RADS BI-RADS 2 - Benign Findings RECOMMENDATION: Routine annual mammography screening. 1 year F/U This examination should not preclude the clinical evaluation of a suspicious palpable abnormality. This patient's information was entered into a reminder system with a target due date for their next mammogram.
== END 2022-09-02 07:42 | disposition home or self-care (01) ==
LOC: HO.MAMMO 07:41
PROVIDERS: PCP Family Medicine; Visit Provider Family Medicine
DX: Z12.31 Encounter for screening mammogram for malignant neoplasm of breast (principal)
CPT/HCPCS: 77063; 77067

== ENCOUNTER → 2022-09-02 07:45 | Outpatient (BNV) | payer OTHER, SELFPAY | PROVIDERS: PCP Family Medicine; Visit Provider Radiology Diagnostic Radiology | DX: Z12.31 Encounter for screening mammogram for malignant neoplasm of breast (principal) | CPT/HCPCS: 77063; 77067 ==

== ENCOUNTER 2022-09-09 06:23 | Outpatient (REF) | payer OTHER, SELFPAY ==
[2022-09-09 08:02] LABS: Anion Gap 16 (12-20); Blood Urea Nitrogen 25 mg/dL (9-16); Calcium 9.9 mg/dL (8.4-10.2); Carbon Dioxide 23 mmol/L (22-29); Chloride 110 mmol/L (96-108); Estimated Glomerular Filt Rate > 60; Glucose Random 98 mg/dL (60-115); Potassium 3.7 mmol/L (3.3-5.1); Sodium 145 mmol/L (135-145)
== END 2022-09-09 06:24 | disposition home or self-care (01) ==
LOC: HO.LAB 06:23
PROVIDERS: PCP Family Medicine; Visit Provider Family Medicine
DX: Z00.00 Encounter for general adult medical examination without abnormal findings (principal); I10 Essential (primary) hypertension
CPT/HCPCS: 36415; 80048

== ENCOUNTER 2022-10-25 06:43 | Outpatient (REF) | payer OTHER, SELFPAY ==
[2022-10-25 07:14] LABS: Hematocrit 33.2 % (37.0-47.0); Hemoglobin 8.8 g/dl (12.0-16.0); Mean Corpuscular HGB Conc 26.5 g/dl (31.0-35.0); Mean Corpuscular Volume 98.2 fL (80.0-98.0); Mean Platelet Volume 9.5 fL (9.4-12.3); Platelet Count 112 X10*3/uL (160-400); Red Blood Count 3.38 X10*6/uL (4.20-5.50); Red Cell Distribution Width 22.5 % (11.0-16.0)
[2022-10-25 07:20] LABS: WBC ABN SCTR FOR CBC 1
[2022-10-25 07:26] LABS: Alanine Aminotransferase 15 U/L (0-31); Albumin Level 4.3 g/dL (3.5-5.0); Alkaline Phosphatase 119 U/L (39-117); Anion Gap 11 (12-20); Aspartate Amino Transferase 29 U/L (5-31); Bilirubin Total 0.5 mg/dL (0.0-1.0); Blood Urea Nitrogen 24 mg/dL (9-16); Calcium 9.7 mg/dL (8.4-10.2); Carbon Dioxide 24 mmol/L (22-29); Chloride 111 mmol/L (96-108); Cholesterol 160 mg/dL (<200); Estimated Glomerular Filt Rate 52; Glucose Fasting 111 mg/dL (60-99); HDL Cholesterol 32 mg/dL (>40); LDL Cholesterol Calculated 106 mg/dL (<100); Potassium 4.2 mmol/L (3.3-5.1); Sodium 142 mmol/L (135-145); Total Protein 6.3 g/dL (6.5-8.0); Triglycerides 110 mg/dL (<150)
[2022-10-25 07:40] LABS: Free T4 (Free Thyroxine) 1.11 ng/dL (0.71-1.85)
[2022-10-25 07:46] LABS: Band Neutrophils Percent 0 % (3-5); Lymphocytes Percent Manual 98 % (20-40); Neutrophils Percent Manual 2 % (45-73)
[2022-10-25 07:48] LABS: Macrocytosis 1+ (5-14) /OIF; Microcytosis 1+ (5-14) /OIF; Ovalocytes 1+ (5-14) /OIF; Platelet Estimate DECREASED (NORMAL); Platelet Morphology Comment NORMAL; RBC Morphology NOTED; Schistocytes 1+ (0-2) /OIF; Smudge Cells PRESENT
[2022-10-25 09:00] LABS: Appearance Urine Clear; Color Urine Yellow; Glucose Urine UA Negative (Negative); Leukocyte Esterase Urine Negative (Negative); Nitrite Urine Negative (Negative); PH 5.5 (5.0-9.0); UMIC TRIGGER UA YES; Urine Blood Negative (Negative); Urine Ketones Negative (Negative); Urine Protein 100 (2+) mg/dL (Neg-Trace)
[2022-10-25 09:29] LABS: Lymphocytes Absolute Manual 335.8 X10*3/uL (1.2-4.9); Neutrophils Absolute Manual 6.9 X10*3/uL (2.0-8.3); White Blood Count 342.7 X10*3/uL (4.8-10.8)
[2022-10-25 10:01] LABS: Bacteria Urine None Seen (None Seen); Hyaline Casts Urine 0-2 /LPF (0-2); WBC Urine 0-5 /HPF (0-5)
[2022-10-25 10:07] LABS: Creatinine Urine 162.91 mg/dL; Microalbum/Creatinine Ratio Ur 402.6 ug/mg cr (<30)
[2022-10-26 21:58] LABS: Triiodothyronine T3 Total 97 ng/dL (76-181)
[2022-10-29 22:19] LABS: Metanephrine, Free 38 pg/mL (<=57); Normetanephrines, Free 258 pg/mL (<=148); Total Metanephrine, Free 296 pg/mL (<=205)
== END 2022-10-25 06:44 | disposition home or self-care (01) ==
LOC: HO.LAB 06:43
PROVIDERS: PCP Family Medicine; Visit Provider Family Medicine
DX: Z00.00 Encounter for general adult medical examination without abnormal findings (principal); I10 Essential (primary) hypertension; E03.9 Hypothyroidism, unspecified
CPT/HCPCS: 36415; 80053; 80061; 81001; 81003; 82043; 82570; 83835; 84439; 84480; 85007; 85025; 85027

== ENCOUNTER 2022-12-09 08:47 | Outpatient (AMB) | payer OTHER, SELFPAY ==
[2022-12-09 09:02] VITALS: BP 132/80; PULSE 69; O2SAT 97; BMI 20.8
--- NOTE | 2022-12-09 09:02 | MHC.PC.OV ---
Vital Signs 12/09/22 09:02 Height 5 ft 8 in Weight 137 lb BMI 20.8 BP 132/80 Pulse 69 Pulse Source Pulse Oximeter Pulse Oximetry (%) 97 Oxygen Delivery Method Room Air Oxygen Flow Rate 97 Intake Visit Reasons: CPE with f/u labs and health maintenance Intake Note: Patient is here for her physical and follow up labs with health maintenance. Allergies acetaminophen [Vicodin] Allergy (Unknown, Verified 12/09/22 09:06) nausea and vomiting hydrocodone [Vicodin] Allergy (Unknown, Verified 12/09/22 09:06) nausea and vomiting penicillin V Allergy (Unknown, Verified 12/09/22 09:06) nausea and vomiting Codeine Sulfate Allergy (Unknown, Uncoded 12/09/22 09:06) nausea and vomiting Pentothal Allergy (Unknown, Uncoded 12/09/22 09:06) nausea and vomiting Tobacco use date assessed: 12/09/22 Fall risk assessment: No Falls in past year Last assessed Fall Risk: 12/09/22 Dental Screening Dental Screen Date: 12/09/22 HPI CPE with f/u labs and health maintenance HPI Details 77 y/o female presents for a CPE with f/u labs and health maintenance. Labs were drawn 10/25/22. Elevated WBC and does have chronic lymphicytic leukemia. Triglycerides 110. TC 160. LDL 106. HDL low at 32. Elevated microalb/creat ratio. Elevated metanephrines. [facility] Medical History Benign pigmented skin lesion Bladder cancer Chronic lymphocytic leukemia Surgical History History of appendectomy History of hysterectomy Family History Father No problems noted. Mother No problems noted. Social History Housing: Apartment Patient Tobacco Use Status: Never used Tobacco e-Cigarette/Vaping Use: Never Used Second Hand Smoke Exposure: No service: No Current occupational status: retired Current occupational exposures/hazards: No Cognitive needs: No Hearing needs: No Vision needs: Yes (Patient wears precription glasses.) Questionnaire Thrive Questionnaire Date Thrive assessed: 03/22/22 MAGED-7 AMB Questionnaire MAGED-7 Date MAGED - 7 assessed: 03/22/22 Source: Developed by Drs. Alvin Brandon, Jeny Chaidez, Mario Lopez and colleagues, with an educational stalin from [employer]. Review of Systems Const Denies chills, Denies fatigue, Denies fever(s), Denies headache(s) and Denies weakness Eyes Denies change in vision ENT Denies dizziness, Denies headache(s), Denies hearing loss, Denies nasal congestion, Denies sinus pain, Denies sinus pressure and Denies sore throat Card Denies chest pain, Denies lightheadedness, Denies dyspnea and Denies other (palpitations) Resp Denies cough, Denies dyspnea and Denies wheezing GI Denies abdominal pain, Denies melena, Denies hematochezia, Denies change in bowel habits, Denies dyspepsia and Denies nausea Denies hematuria and Denies dysuria Musc Denies abnormal gait, Denies myalgias, Denies arthralgias, Denies numbness and Denies tingling Skin/Breast Denies rash, Denies unusual bruising and Denies wounds Neuro Denies abnormal gait, Denies dizziness, Denies headache(s), Denies memory loss, Denies numbness, Denies Sensory deficit (Neuro), Denies tingling and Denies weakness Psych Denies anxiety, Denies depression and Denies memory loss Endo Denies cold intolerance, Denies fatigue, Denies heat intolerance, Denies polydipsia and Denies polyuria Eric/Lymph Denies easy bleeding and Denies easy bruising Aller/Immun Denies wheezing Physical exam (Primary Care) Vital Signs: Last Vital Signs Pulse 69 12/09/22 09:02 BP 132/80 12/09/22 09:02 Pulse Ox 97 12/09/22 09:02 Oxygen Delivery Method Room Air 12/09/22 09:02 Oxygen Flow Rate 97 12/09/22 09:02 BMI result Body Mass Index 20.8 Tobacco/Smoking Status: Tobacco use Status Tobacco use date assessed 12/09/22 12/09/22 09:08 Patient Tobacco Use Status Never used Tobacco 12/09/22 09:06 e-Cigarette/Vaping Use Never Used 12/09/22 09:06 Thrive Assessment: Date of Thrive Assessment Date Thrive assessed 03/22/22 12/09/22 09:06 Const General: no acute distress, well developed, alert and awake Nutritional Appearance: well nourished Orientation/consciousness: patient oriented x3 HENMT Head: Yes normocephalic and Yes atraumatic Ears: hearing grossly normal bilaterally and TM's normal bilaterally General nose exam: Normal external nose present and Normal nares present Mouth: Normal oral and palatal mucosa present and moist mucous membranes Teeth and gingiva: dentition normal Throat: Yes posterior oropharynx normal Eyes General: appearance normal, both eyes and all related structures Pupils: Equal, round and reactive pupils present and Pupil accommodation reflex normal EOM: EOMs intact bilaterally Neck Neck: Yes normal visual inspection, Yes no lymphadenopathy and Yes trachea midline Thyroid: Thyroid normal Carotids: no bruits Lymphatic: no lymphadenopathy noted Chest Chest palpation & inspection: normal inspection of the chest Resp Effort & Inspection: normal respiratory effort Auscultation: clear to auscultation bilaterally Cardio Rate: regular rate Rhythm: regular rhythm Heart sounds: S1 normal heart sound present, S2 normal heart sound present, no gallops, no murmurs and no rubs Bruits: no abdominal aortic bruits and no carotid bruits GI Palpation (GI): No Abdominal aortic bruit present, Soft to palpation, nontender, No hepatosplenomegaly present and No Rebound tenderness present Auscultation: normal bowel sounds General: Yes no CVA tenderness Back/Spine/Pelvis Back: no CVA tenderness Cervical Spine: cervical ROM normal and No Cervical spine tenderness Thoracic/Lumbar Spine: thoraco-lumbar ROM normal, No pain with thoraco-lumbar ROM, No thoracic spinal tenderness and No lumbar spinal tenderness Skin Lesions: no lesions Rashes: no rashes Trauma: no lacerations or abrasions Wounds: no wounds Nails: normal Neuro General: patient oriented x3 Cranial nerves: Yes Equal, round and reactive pupils present Cognition (Neuro): normal cognition Gait exam (Neuro): Normal gait present Motor exam (neuro): 5/5 motor strength present throughout Sensory Exam: No Sensory deficit (Neuro) Deep tendon reflexes (DTR's): Right patellar reflex intensity grade: 2+ and Left patellar reflex intensity grade: 2+ Extrem General: Yes normal to inspection and No edema Psych Appearance: grossly normal Affect: normal affect Attitude: cooperative Thought process: Normal thought process present Results AMB Hemoglobin A1c AMB Hemoglobin A1c 6.0 % Last Edit by Lakeshia Johns CMA on 12/09/22 10:06 Assessment and Plan Assessment & Plan (1) Adult general medical exam: Code(s): Z00.00 - Encounter for general adult medical examination without abnormal findings Plan: 77-year-old?female?presents?for?complete?physical?exam Encouraged?healthy?diet?with?active?lifestyle?and?plenty?of?exercise (2) Elevated plasma metanephrines: Code(s): R79.89 - Other specified abnormal findings of blood chemistry Plan: Patient?has?had?fluctuating?blood?pressures Metanephrines?are?elevated Referred?to?endocrinology (3) Essential hypertension: Code(s): I10 - Essential (primary) hypertension Plan: As?above,?blood?pressures?fluctuate?though?fairly?well?controlled?today.??Goal?is?less?than?130/80 Continue?current?medication?regimen?and?follow-up?with?cardiology (4) Chronic lymphocytic leukemia: Code(s): C91.10 - Chronic lymphocytic leukemia of B-cell type not having achieved remission Plan: Stable Patient?followed?by?. Patient?requests?new?referral?to?Dr. Ramsey which?is?made (5) Hyperlipidemia: Code(s): E78.5 - Hyperlipidemia, unspecified Plan: Cholesterol?levels?show?good?control She?is?on?simvastatin HDL?is?low?however-see?below (6) Low HDL (under 40): Code(s): E78.6 - Lipoprotein deficiency Plan: Low?HDL?and?patient?is?already?exercising?regularly.??Continue?to?work?at?exercise Encouraged?shifting?some?of?her?lipid?intake?to?Victor?3?fatty?acids?such?as?fish,?flaxseed olu seeds etc (7) Elevated fasting glucose: Code(s): R73.01 - Impaired fasting glucose (8) Hypothyroidism: Code(s): E03.9 - Hypothyroidism, unspecified Plan: Controlled?with?levothyroxine Continue?current?medication (9) Osteopenia: Code(s): M85.80 - Other specified disorders of bone density and structure, unspecified site Plan: Due?for?bone?density-ordered (10) Breast cancer screening by mammogram: Code(s): Z12.31 - Encounter for screening mammogram for malignant neoplasm of breast Plan: Mammogram?in?August?was?okay.??Up-to-date (11) Screening for colon cancer: Code(s): Z12.11 - Encounter for screening for malignant neoplasm of colon Plan: Patient?says?her?last?colonoscopy?was?in?[place]?in?2014. Up-to-date.??She?will?get?next?colonoscopy?in?2024 (12) Eye irritation: Code(s): H57.89 - Other specified disorders of eye and adnexa Plan: Referred?to (13) Cardiomyopathy: Code(s): I42.9 - Cardiomyopathy, unspecified Plan: Stable Follow-up?with?Cardiology?as?recommended (14) Change in hearing: Code(s): H91.90 - Unspecified hearing loss, unspecified ear Plan: Right?hearing?loss. She?declines?hearing?testing?or?amplification?for?now.??She?will?let?me?know?if?she?has?any?left?hearing?loss. (15) Immunization counseling: Code(s): Z71.85 - Encounter for immunization safety counseling Plan: Advised?high-dose?flu?shot?at?her?pharmacy (16) Pre-diabetes: Code(s): R73.03 - Prediabetes Plan: A1c?6.0%.??Pre?diabetes?range Encouraged?a?diet?lower?in?sugars?and?starches Orders: Orders AMB Hemoglobin A1c Today Z13.9 - Encounter for screening, unspecified XR DEXA axial skeleton Today M85.80 - Other specified disorders of bone density and structure, unspecified site Referrals Cardiology Referral I42.9 - Cardiomyopathy, unspecified Endocrinology Referral I10 - Essential (primary) hypertension, I42.9 - Cardiomyopathy, unspecified, R79.89 - Other specified abnormal findings of blood chemistry Ophthalmology Referral H57.89 - Other specified disorders of eye and adnexa Hematology & Oncology Referral C91.10 - Chronic lymphocytic leukemia of B-cell type not having achieved remission Coding Level of Care Code Est Pt Level 4 (42961) Est Pt Prev Care >65y(62731) Diagnoses Adult general medical exam Z00.00 Elevated plasma metanephrines R79.89 Essential hypertension I10 Chronic lymphocytic leukemia C91.10 Hyperlipidemia E78.5 Low HDL (under 40) E78.6 Elevated fasting glucose R73.01 Hypothyroidism E03.9 Osteopenia M85.80 Breast cancer screening by mammogram Z12.31 Screening for colon cancer Z12.11 Eye irritation H57.89 Cardiomyopathy I42.9 Change in hearing H91.90 Immunization counseling Z71.85 Pre-diabetes R73.03
== END 2022-12-09 10:10 | disposition home or self-care (01) ==
PROVIDERS: PCP Family Medicine; Visit Provider Family Medicine
DX: Z00.00 Encounter for general adult medical examination without abnormal findings (principal); C91.10 Chronic lymphocytic leukemia of B-cell type not having achieved remission; I42.9 Cardiomyopathy, unspecified; R79.89 Other specified abnormal findings of blood chemistry; I10 Essential (primary) hypertension; E78.5 Hyperlipidemia, unspecified; E78.6 Lipoprotein deficiency; R73.01 Impaired fasting glucose; E03.9 Hypothyroidism, unspecified; M85.80 Other specified disorders of bone density and structure, unspecified site
CPT/HCPCS: 83036; 99397

== ENCOUNTER 2023-01-05 09:11 | Outpatient (REF) | payer OTHER, SELFPAY ==
--- NOTE | ~2023-01-05 | MM_ITS ---
EXAMINATION: BONE DENSITOMETRY CLINICAL INDICATION: Disorders of bone density and structure, osteopenia. COMPARISON: Previous BD dated 08/26/2020 and baseline BD dated 08/25/2018. TECHNIQUE: Using a [employer] DXA System (software version: 13.1) manufactured by [employer], dual-energy x-ray absorptiometry was performed of the lumbar spine and left hip. The images are of good technical quality. Summary results are attached. FINDINGS: LEFT FEMUR, NECK: Current: BMD 1.041 g/cm2, Z-score 2.1, T-score 0.0, normal. Prior: BMD 1.044 g/cm2. Baseline: BMD 1.047 g/cm2. LEFT FEMUR, TOTAL: Current: BMD 0.995 g/cm2, Z-score 1.8, T-score -0.1, normal, 3.2% decrease from previous, 4.0% decrease from baseline (<5% change is not significant). Prior: BMD 1.028 g/cm2. Baseline: BMD 1.036 g/cm2. AP SPINE L1-L4: Current: BMD 0.912 g/cm2, Z-score -0.4, T-score -2.2, osteopenia, 7.8% decrease from previous, 11.6% decrease from baseline (<5% change is not significant). Prior: BMD 0.989 g/cm2. Baseline: BMD 1.032 g/cm2. IDENTIFIED RISK FACTORS: Early menopause, secondary osteoporosis, hysterectomy, bilateral oophorectomy. HISTORY OF FRACTURE: None listed. MEDICATIONS: Calcium supplements or multivitamin, vitamin D. MM/XR DEXA axial skeleton IMPRESSION: 1. DIAGNOSIS: Osteopenia based on the lowest T-score value of -2.2 in the lumbar spine applying World Health Organization criteria. 2. 10-YEAR FRACTURE RISK PREDICTION, FRAX: Major osteoporotic fracture (clinical spine, forearm, hip or shoulder) 6.9%. Hip fracture 0.7%. 3. Treatment Recommendations: NOF guidelines recommend consideration for treatment in postmenopausal women and men age 50 and older presenting with the following: -A hip or vertebral (clinical or morphometric) fracture. -T-score less than or equal to -2.5 at the femoral neck or spine after appropriate evaluation to exclude secondary causes. -Low bone mass at the hip or spine and a 10-year fracture probability by FRAX of greater than or equal to 3% for hip fracture or greater than or equal to 20% for major osteoporotic fracture based on the [place] adapted WHO algorithm. 4. Other Recommendations: All treatment decisions require clinical judgment and consideration of individual patient factors, including patient preferences, comorbidities, previous drug use, risk factors not captured in the FRAX model (e.g. frailty, falls, vitamin D deficiency, increased bone turnover, interval significant decline in bone density) and possible under or overestimation of fracture risk by FRAX. Additional medical evaluation for secondary cause of low bone mineral density may be appropriate. FUTURE SCAN RECOMMENDATION: People with diagnosed cases of osteoporosis or at high risk for fracture should have regular bone mineral density tests. For patients eligible for Medicare, routine testing is allowed once every 2 years. The testing frequency can be increased to one year for patients who have rapidly progressing disease, those who are receiving or discontinuing medical therapy to restore bone mass, or have additional risk factors.
== END 2023-01-05 09:12 | disposition home or self-care (01) ==
LOC: HO.MAMMO 09:11
PROVIDERS: PCP Family Medicine; Visit Provider Family Medicine
DX: Z13.820 Encounter for screening for osteoporosis (principal); M85.80 Other specified disorders of bone density and structure, unspecified site; Z78.0 Asymptomatic menopausal state
CPT/HCPCS: 77080

== ENCOUNTER 2023-03-17 12:00 | Outpatient (AMB) | payer OTHER, SELFPAY ==
[2023-03-17 12:17] VITALS: BP 120/60; PULSE 81; O2SAT 96; BMI 20.4
--- NOTE | 2023-03-17 12:17 | A.OFFPC_ITS ---
Vital Signs 03/17/23 12:17 Height 5 ft 8 in Weight 134 lb 8 oz BMI 20.4 BP 120/60 Blood Pressure Location Lt brachial Position Sitting Pulse 81 Pulse Source Pulse Oximeter Pulse Oximetry (%) 96 Oxygen Delivery Method Room Air Intake Visit Reasons: f/u HTN and blood sugars Intake Note: Patient is here to follow up on hypertension and blood sugars. She would like to talk about spells of vertigo that last from 5-7 days. Allergies acetaminophen [Vicodin] Allergy (Unknown, Verified 03/17/23 12:20) nausea and vomiting hydrocodone [Vicodin] Allergy (Unknown, Verified 03/17/23 12:20) nausea and vomiting penicillin V Allergy (Unknown, Verified 03/17/23 12:20) nausea and vomiting Codeine Sulfate Allergy (Unknown, Uncoded 03/17/23 12:20) nausea and vomiting Pentothal Allergy (Unknown, Uncoded 03/17/23 12:20) nausea and vomiting Tobacco use date assessed: 03/17/23 Fall risk assessment: No Falls in past year Last assessed Fall Risk: 03/17/23 Dental Screening Dental Screen Date: 03/17/23 Did you have a dental visit in the last 12 months?: No Did you have a dental problem in the last 6 months where you did not have access to dental care?: No Was dental information given to patient?: Patient declined HPI f/u HTN and blood sugars HPI Details 77 y/o female presents to f/u hypertensi on and blood sugars. Pt has hx of cardiomyopathy. Blood pressure today 120/60. She is on carvedilol 3.125mg b.i.d, Entresto. Pt reports vertigo. A1c today 03/17/23 6.7%. [facility] Medical History Chronic lymphocytic leukemia Bladder cancer Benign pigmented skin lesion Surgical History History of hysterectomy History of appendectomy Family History Father No problems noted. Mother No problems noted. Social History Housing: Apartment Patient Tobacco Use Status: Never used Tobacco e-Cigarette/Vaping Use: Never Used Second Hand Smoke Exposure: No service: No Current occupational status: retired Current occupational exposures/hazards: No Cognitive needs: No Hearing needs: No Vision needs: Yes (Patient wears precription glasses.) Questionnaire PHQ-9 Over the last 2 weeks, how often have you been bothered by any of the following problems? 1. Little interest or pleasure in doing things: not at all 2. Feeling down, depressed, or hopeless: not at all 3. Trouble falling or staying asleep, or sleeping too much: not at all 4. Feeling tired or having little energy: not at all 5. Poor appetite or overeating: not at all 6. Feeling bad about yourself - or that you are a failure or have let yourself or your family down: not at all 7. Trouble concentrating on things, such as reading the newspaper or watching television: not at all 8. Moving or speaking so slowly that other people could have noticed. Or the opposite - being so fidgety or restless that you have been moving around a lot more than usual: not at all 9. Thoughts that you would be better off or of hurting yourself in some way: not at all Total score: 0 Source: Developed by Drs. Alvin Brandon, Jeny Chaidez, Mario Lopez and colleagues, with an educational stalin from [employer]. Thrive Questionnaire Date Thrive assessed: 03/17/23 I am a: Patient What is your living situation today?: I have a steady place to live Within the past 12 months, did the food you bought not last and you didn't have the money to get more?: Never true Within the past 12 months, did you worry whether your food would run out before you got money to buy more?: Never true Do you have trouble paying for medicines?: No Do you have trouble getting transportation to medical appointments?: No Do you have trouble paying your heating and electricity bill?: No Do you have trouble taking care of your child, family member or friend?: No Do you have trouble with day-to-day activities such as bathing, preparing meals, shopping, managing finances, etc.?: No Are you currently unemployed and looking for a job?: No Are you interested in more education?: No THRIVE Score: 0 AUDIT C Alcohol Use Questionnaire (AUDIT-C) 1. How often do you have a drink containing alcohol?: Never 3. How often do you have six or more drinks on one occasion?: Never Total Score: 0 MAGED-7 AMB Questionnaire MAGED-7 Date MAGED - 7 assessed: 03/17/23 Feeling nervous, anxious, or on edge: 0 = Not at all Not being able to stop or control worryin = Not at all Worrying too much about different things: 0 = Not at all Trouble relaxin = Not at all Being so restless that it is hard to sit still: 0 = Not at all Becoming easily annoyed or irritable: 0 = Not at all Feeling afraid as if something awful might happen: 0 = Not at all Total MAGED-7 score (0-4 normal; 5-9 mild; 10-14 moderate; 15-21 severe): 0 Source: Developed by Drs. Alvin Brandon, Jeny Chaidez, Mario Lopez and colleagues, with an educational stalin from [employer]. Review of Systems Const Denies chills, Denies fatigue, Denies fever(s), Denies headache(s) and Denies weakness ENT Denies dizziness and Denies headache(s) Card Denies chest pain, Denies lightheadedness, Denies dyspnea and Denies other (Palpitations) Resp Denies cough, Denies dyspnea, Denies wheezing and Denies other ( shortness of breath) Musc Denies numbness and Denies tingling Neuro Denies dizziness, Denies headache(s), Denies numbness, Denies tingling, Denies paresthesias and Denies weakness Psych Denies anxiety and Denies depression Endo Denies fatigue Aller/Immun Denies wheezing Physical exam (Primary Care) Vital Signs: Last Vital Signs Pulse 81 03/17/23 12:17 BP 120/60 03/17/23 12:17 Pulse Ox 96 03/17/23 12:17 Oxygen Delivery Method Room Air 03/17/23 12:17 BMI result Body Mass Index 20.4 Tobacco/Smoking Status: Tobacco use Status Tobacco use date assessed 03/17/23 03/17/23 12:23 Patient Tobacco Use Status Never used Tobacco 03/17/23 12:23 e-Cigarette/Vaping Use Never Used 03/17/23 12:23 PHQ-9: PHQ-9 Score PHQ-9: Total score 0 03/17/23 12:49 Thrive Assessment: Date of Thrive Assessment Date Thrive assessed 03/17/23 03/17/23 12:29 Const General: no acute distress and well developed Nutritional Appearance: well nourished Orientation/consciousness: patient oriented x3 [facility] Head: Yes normocephalic and Yes atraumatic Eyes General: appearance normal, both eyes and all related structures Pupils: Equal, round and reactive pupils present EOM: EOMs intact bilaterally Resp Effort & Inspection: normal respiratory effort Auscultation: clear to auscultation bilaterally Cardio Rate: regular rate Rhythm: regular rhythm Heart sounds: S1 normal heart sound present, S2 normal heart sound present, no gallops, no murmurs and no rubs Neuro General: patient oriented x3 and gait normal Cranial nerves: Yes Equal, round and reactive pupils present Psych Affect: normal affect Results AMB Hemoglobin A1c AMB Hemoglobin A1c 6.7 % Last Edit by Lakeshia Johns CMA on 03/17/23 13:21 Assessment and Plan Assessment & Plan (1) Hypertension: Code(s): I10 - Essential (primary) hypertension Plan: Blood?pressure?is?well?controlled.??Goal?is?less?than?130/80 Continue?current?medication Follow-up?with?Cardiology (2) Vertigo: Code(s): R42 - Dizziness and giddiness Plan: Patient?notes?vertigo?when?sitting?still?a?in?passenger?seat?of?car?that?is?movi ng?and?turning. No?symptoms?when?standing?quickly She?describes?symptoms?as?nausea?with?turning?and?symp toms?sound?more?like?motion?sickness. She?has?meclizine?which?she?uses. She?describes?symptoms?but?says?she?does?not?want?further?workup?at?this?time.?? I?did?also?offer?vestibular?rehab/PT?and?she?would?like?to?read?about?this. (3) Bladder cancer: Code(s): C67.9 - Malignant neoplasm of bladder, unspecified Plan: She?requests?referral?to[facility]and?referral?is?made. (4) Diabetes: Code(s): E11.9 - Type 2 diabetes mellitus without complications Plan: A1c?6.7%.??Early?diabetes. Started?metformin?and?risks/benefits?discussed. We?can?follow-up?at?subsequent?visit?with?A1c?testing Orders: Orders AMB Hemoglobin A1c Today Z13.9 - Encounter for screening, unspecified Referrals Ophthalmology Referral E11.9 - Type 2 diabetes mellitus without complications Urology Referral C67.9 - Malignant neoplasm of bladder, unspecified Coding Level of Care Code Est Pt Level 4 (85551) Diagnoses Hypertension I10 Vertigo R42 Bladder cancer C67.9 Diabetes E11.9
== END 2023-03-17 13:28 | disposition home or self-care (01) ==
PROVIDERS: PCP Family Medicine; Visit Provider Family Medicine
DX: E11.9 Type 2 diabetes mellitus without complications (principal); C67.9 Malignant neoplasm of bladder, unspecified; I10 Essential (primary) hypertension; R42 Dizziness and giddiness
CPT/HCPCS: 83036; 99214

== ENCOUNTER 2023-03-30 08:05 | Outpatient (AMB) | payer OTHER, SELFPAY ==
--- NOTE | 2023-03-30 08:23 | A.OFFVIS_ITS ---
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 Required: No Accompanied by: Self / Same As Patient Allergies acetaminophen [Vicodin] Allergy (Unknown, Verified 03/17/23 12:20) nausea and vomiting hydrocodone [Vicodin] Allergy (Unknown, Verified 03/17/23 12:20) nausea and vomiting penicillin V Allergy (Unknown, Verified 03/17/23 12:20) nausea and vomiting latex Adverse Reaction (Intermediate, Verified 03/30/23 08:27) Hives Codeine Sulfate Allergy (Unknown, Uncoded 03/17/23 12:20) nausea and vomiting Pentothal Allergy (Unknown, Uncoded 03/17/23 12:20) nausea and vomiting Medication List - Last Reconciled 03/30/23 by Dylon Oscar MD calcium citrate-vitamin D3 315 mg-6.25 mcg (250 unit) (Citracal + Vitamin D Maximum) 1 tab PO DAILY carvedilol (Coreg) 3.125 mg PO BID 90 days levothyroxine 50 mcg PO DAILY 90 days lysine 1,000 mg PO DAILY metformin 250 mg (1/2 x 500 mg) PO DAILY 30 days sacubitril-valsartan 49-51 mg (Entresto) 1 tab PO BID 90 days simvastatin 40 mg PO DAILY 90 days HPI HPI Comments History of Present Illness Details Jackie returns for follow-up regarding cardiomyopathy. She was diagnosed with cardiomyopathy in 2021, after getting echocardiogram done for question of cardiac murmur. She has a history of CLL and being followed by Hematology at [facility]. She also has a history of bladder cancer under control. Overall, she states she is feeling fine. No symptoms like shortness of breath or anything cardiac related. In the past, had complained of tiredness but not anymore. [facility] Medical History Chronic lymphocytic leukemia Bladder cancer Benign pigmented skin lesion Surgical History History of hysterectomy History of appendectomy Family History Father No problems noted. Mother No problems noted. Social History Housing: Apartment Patient Tobacco Use Status: Never used Tobacco e-Cigarette/Vaping Use: Never Used Second Hand Smoke Exposure: No service: No Current occupational status: retired Current occupational exposures/hazards: No Cognitive needs: No Hearing needs: No Vision needs: Yes (Patient wears precription glasses.) Review of Systems Const Denies weakness ENT Denies dizziness Card Denies chest pain, Denies chest pain with activity, Denies syncope, Denies rapid heart rate, Denies pedal edema, Denies edema, Denies leg edema, Denies lightheadedness, Denies palpitations, Denies dyspnea, Denies dyspnea on exertion and Denies orthopnea Resp Denies cough, Denies dyspnea and Denies dyspnea on exertion GI Denies hematochezia and Denies change in stool character Musc Denies abnormal gait, Denies muscle cramps, Denies muscle weakness, Denies numbness, Denies radiating pain into limb and Denies tingling Neuro Denies abnormal gait, Denies dizziness, Denies syncope, Denies numbness, Denies tingling and Denies weakness Endo Denies palpitations Physical Exam Vital Signs: Last Vital Signs Pulse 85 03/30/23 08:24 BP 142/68 H 03/30/23 08:24 BMI result Body Mass Index 20.2 Const General: comfortable and no acute distress Orientation/consciousness: patient oriented x3 HEENT Other: Unremarkable Head: Yes normal to inspection Neck Neck: Yes normal visual inspection Chest Chest palpation & inspection: normal inspection of the chest Resp Auscultation: clear to auscultation bilaterally Cardio Palpation: normal PMI Heart sounds: S1 normal heart sound present, S2 normal heart sound present, no gallops, Murmur heart sound present systolic II/ and no rubs GI Palpation (GI): Soft to palpation Back/Spine/Pelvis Other: unremarkable Skin General skin exam: no rashes or lesions noted Neuro General: patient oriented x3 Extrem General: Yes normal to inspection Psych Mental Status: mental status grossly normal Assessment & Plan Assessment & Plan (1) Cardiomyopathy: Code(s): I42.9 - Cardiomyopathy, unspecified Plan: Most recent echocardiogram with LVEF of 40-45%. Prior to that 25-30%. In the prior echocardiogram from 2018, LVEF was 60-65%. Myocardial perfusion imaging study shows normal perfusion. Cardiac MRI with LVEF of 43%. RVEF 49%. Thought to be from nonischemic cardiomyopathy. For meds, continue Coreg and Entresto. We discussed about other medications like spironolactone but she has not willing to take more. No need for diuretics as she has no volume overload. Clinically overall, NYHA class 1. (2) Nonrheumatic mitral valve regurgitation: Code(s): I34.0 - Nonrheumatic mitral (valve) insufficiency Plan: Echocardiogram shows [id number] mitral regurgitation. No specific interventions. (3) LBBB (left bundle branch block): Code(s): I44.7 - Left bundle-branch block, unspecified Plan: Chronic finding. (4) Essential hypertension: Code(s): I10 - Essential (primary) hypertension Plan: She believes there is all from extreme anxiety. Other blood pressures reviewed from her diary. They are very much in the normal range. Coding Level of Care Code Est Pt Level 4 (80147) Diagnoses Cardiomyopathy I42.9 Nonrheumatic mitral valve regurgitation I34.0 LBBB (left bundle branch block) I44.7 Essential hypertension I10
[2023-03-30 08:24] VITALS: BP 142/68; PULSE 85; BMI 20.2
== END 2023-03-30 08:42 | disposition home or self-care (01) ==
PROVIDERS: PCP Family Medicine; Visit Provider Internal Medicine
DX: I42.9 Cardiomyopathy, unspecified (principal); I34.0 Nonrheumatic mitral (valve) insufficiency; I44.7 Left bundle-branch block, unspecified; I10 Essential (primary) hypertension
CPT/HCPCS: 99214

== ENCOUNTER → 2023-03-30 08:05 | Outpatient (BNVA) | payer OTHER, SELFPAY | PROVIDERS: PCP Family Medicine; Visit Provider Internal Medicine | DX: I42.9 Cardiomyopathy, unspecified (principal); I34.0 Nonrheumatic mitral (valve) insufficiency; I44.7 Left bundle-branch block, unspecified; I10 Essential (primary) hypertension | CPT/HCPCS: 99212 ==

== ENCOUNTER 2023-06-17 09:22 | Outpatient (AMB) | payer OTHER, SELFPAY ==
[2023-06-17 09:25] VITALS: BP 122/60; PULSE 66; O2SAT 100; BMI 19.0
--- NOTE | 2023-06-17 09:25 | A.OFFPC_ITS ---
Vital Signs 06/17/23 09:25 Height 5 ft 8 in Weight 125 lb 2 oz BMI 19.0 BP 122/60 Blood Pressure Location Lt brachial Position Sitting Pulse 66 Pulse Source Pulse Oximeter Pulse Oximetry (%) 100 Oxygen Delivery Method Room Air Intake Visit Reasons: f/u hypertension Intake Note: Patient is here for follow up on hypertension. Patient would like to talk about Metformoin, it's making her lose weight. Allergies acetaminophen [Vicodin] Allergy (Unknown, Verified 06/17/23 09:33) nausea and vomiting hydrocodone [Vicodin] Allergy (Unknown, Verified 06/17/23 09:33) nausea and vomiting penicillin V Allergy (Unknown, Verified 06/17/23 09:33) nausea and vomiting latex Adverse Reaction (Intermediate, Verified 06/17/23 09:33) Hives Codeine Sulfate Allergy (Unknown, Uncoded 06/17/23 09:33) nausea and vomiting Pentothal Allergy (Unknown, Uncoded 06/17/23 09:33) nausea and vomiting Medication List - Last Reconciled 06/17/23 by Madhu Zimmerman MD calcium citrate-vitamin D3 315 mg-6.25 mcg (250 unit) (Citracal + Vitamin D Maximum) 1 tab PO DAILY carvedilol (Coreg) 3.125 mg PO BID 90 days levothyroxine 50 mcg PO DAILY 90 days lysine 1,000 mg PO DAILY metformin 250 mg (1/2 x 500 mg) PO DAILY 30 days sacubitril-valsartan 49-51 mg (Entresto) 1 tab PO BID 90 days simvastatin 40 mg PO DAILY 90 days Tobacco use date assessed: 06/17/23 Fall risk assessment: No Falls in past year Last assessed Fall Risk: 06/17/23 Dental Screening Dental Screen Date: 06/17/23 Did you have a dental visit in the last 12 months?: No Did you have a dental problem in the last 6 months where you did not have access to dental care?: No Was dental information given to patient?: Patient has dentist HPI f/u hypertension HPI Details Patient?presents?to?follow-up?hypertension?and?diabetes. Blood?pressure?122/60?on?carvedilol?and?Entresto A1c?climbed?to?6.7%?at?last?visit?and?we?started?metformin?250?mg?b.i.d.. Pt has lost 7 lbs and attributes this to metformin. BMI now in underweight range. [facility] Medical History Chronic lymphocytic leukemia Bladder cancer Benign pigmented skin lesion Surgical History History of hysterectomy History of appendectomy Family History Father No problems noted. Mother No problems noted. Social History Housing: Apartment Patient Tobacco Use Status: Never used Tobacco e-Cigarette/Vaping Use: Never Used Second Hand Smoke Exposure: No service: No Current occupational status: retired Current occupational exposures/hazards: No Cognitive needs: No Hearing needs: No Vision needs: Yes (Patient wears precription glasses.) Questionnaire Thrive Questionnaire Date Thrive assessed: 03/17/23 MAGED-7 AMB Questionnaire MAGED-7 Date MAGED - 7 assessed: 03/17/23 Source: Developed by Drs. Alvin Brandon, Jeny Chaidez, Mario Lopez and colleagues, with an educational stalin from [employer]. Review of Systems Const Denies chills, Denies fatigue, Denies fever(s), Denies headache(s) and Denies weakness ENT Denies dizziness and Denies headache(s) Card Denies chest pain, Denies lightheadedness, Denies dyspnea and Denies other (Palpitations) Resp Denies cough, Denies dyspnea, Denies wheezing and Denies other ( shortness of breath) Musc Denies numbness and Denies tingling Neuro Denies dizziness, Denies headache(s), Denies numbness, Denies tingling, Denies paresthesias and Denies weakness Psych Denies anxiety and Denies depression Endo Denies fatigue Aller/Immun Denies wheezing Physical exam (Primary Care) Vital Signs: Last Vital Signs Pulse 66 06/17/23 09:25 BP 122/60 06/17/23 09:25 Pulse Ox 100 06/17/23 09:25 Oxygen Delivery Method Room Air 06/17/23 09:25 BMI result Body Mass Index 19.0 Tobacco/Smoking Status: Tobacco use Status Tobacco use date assessed 06/17/23 06/17/23 09:36 Patient Tobacco Use Status Never used Tobacco 06/17/23 09:31 e-Cigarette/Vaping Use Never Used 06/17/23 09:31 Thrive Assessment: Date of Thrive Assessment Date Thrive assessed 03/17/23 06/17/23 09:31 Const General: no acute distress and well developed Nutritional Appearance: well nourished Orientation/consciousness: patient oriented x3 HENMT Head: Yes normocephalic and Yes atraumatic Eyes General: appearance normal, both eyes and all related structures Pupils: Equal, round and reactive pupils present EOM: EOMs intact bilaterally Resp Effort & Inspection: normal respiratory effort Auscultation: clear to auscultation bilaterally Cardio Rate: regular rate Rhythm: regular rhythm Heart sounds: S1 normal heart sound present, S2 normal heart sound present, no gallops, no murmurs and no rubs Neuro General: patient oriented x3 and gait normal Cranial nerves: Yes Equal, round and reactive pupils present Psych Affect: normal affect Assessment and Plan Assessment & Plan (1) Hypertension: Code(s): I10 - Essential (primary) hypertension Plan: Blood?pressure?is?well?controlled.??Goal?is?less?than?130/80 Continue?current?medications (2) Diabetes: Code(s): E11.9 - Type 2 diabetes mellitus without complications Plan: A1c?had?been?at?6.7%?which?is?early?diabetes.??Patient?also?has?history?of?cardi omyopathy?so?had?started?her?on?a?low?dose?of?metformin. She?has?lost?about?7?lb?and?also?is?now?in?underweight?status. We?discussed?a?trial?as?a?diet-controlled?diabetic?or?switching?to?metformin?robert ry?other?day.??She?would?like?to?try?metformin?every?other?day. Advised?that?she?can?trial?stopping?the?medication?if?she?continues?to?lose?weig ht?and?if?so,?she?will?let?me?know?sooner?so?we?can?work?that?up. Continue?to?work?at?a?diet?lower?in?sugars?and?starches- see?says?that?she?is?already?cut?out?most?of?these?since?our?last?visit. (3) Underweight: Code(s): R63.6 - Underweight Plan: Patient?is?now?underweight. She?attributes?this?to?a?metformin?and?she?will?decrease?her?dose?to?every?other ?day. She?will?stop?medication?ent irely?and?let?me?know?if?she?continues?to?lose?weight. Orders: Orders AMB Hemoglobin A1c Today Z13.9 - Encounter for screening, unspecified Coding Level of Care Code Est Pt Level 4 (74222) Diagnoses Hypertension I10 Diabetes E11.9 Underweight R63.6
== END 2023-06-17 09:56 | disposition home or self-care (01) ==
PROVIDERS: PCP Family Medicine; Visit Provider Family Medicine
DX: I10 Essential (primary) hypertension (principal); E11.9 Type 2 diabetes mellitus without complications; R63.6 Underweight
CPT/HCPCS: 83036; 99214

== ENCOUNTER 2023-09-07 07:23 | Outpatient (REF) | payer OTHER, SELFPAY ==
--- NOTE | ~2023-09-07 | MM_ITS ---
EXAMINATION: MM SCREENING DIGITAL BREAST TOMOSYNTHESIS, BILATERAL CLINICAL INFORMATION: Screening. Asymptomatic. COMPARISON: Mammography: This study is compared with prior exams dating back to 2019. TECHNIQUE: Digital breast tomosynthesis is performed in both the craniocaudal and mediolateral oblique views along with computer-aided detection (CAD). Synthesized 2D images are generated from the tomosynthesis. FINDINGS: There are scattered areas of fibroglandular density (ACR BI-RADS breast composition Category b). There are no significant masses, abnormal calcifications, or other abnormalities. There is a tissue marker in the left breast from prior benign percutaneous biopsy of the subareolar region. There is diffuse, homogeneous crowding of the trabecular markings of each breast. This is indicative of weight loss. MM/MM tomosynthesis screening BI IMPRESSION: No mammographic evidence of malignancy. Evidence of weight loss with bilateral, decreased volume of the breast tissue. Clinical correlation recommended as to if this weight loss was intended or not. ASSESSMENT: BI-RADS BI-RADS 2 - Benign Findings RECOMMENDATION: Routine annual mammography screening. 1 year F/U This examination should not preclude the clinical evaluation of a suspicious palpable abnormality. This patient's information was entered into a reminder system with a target due date for their next mammogram.
== END 2023-09-07 07:24 | disposition home or self-care (01) ==
LOC: HO.MAMMO 07:23
PROVIDERS: PCP Family Medicine; Visit Provider Family Medicine
DX: Z12.31 Encounter for screening mammogram for malignant neoplasm of breast (principal)
CPT/HCPCS: 77063; 77067

== ENCOUNTER → 2023-09-07 07:45 | Outpatient (BNV) | payer OTHER, SELFPAY | PROVIDERS: PCP Family Medicine; Visit Provider Radiology Diagnostic Radiology | DX: Z12.31 Encounter for screening mammogram for malignant neoplasm of breast (principal) | CPT/HCPCS: 77063; 77067 ==

== ENCOUNTER 2023-09-19 09:05 | Outpatient (AMB) | payer OTHER, SELFPAY ==
--- NOTE | 2023-09-19 09:25 | MHC.PC.OV ---
Vital Signs 09/19/23 09:27 Height 5 ft 8 in Weight 116 lb 6 oz BMI 17.7 BP 110/60 Blood Pressure Location Rt brachial Position Sitting Respiration 16 Pulse 70 Pulse Source Pulse Oximeter Temp 98 F Temp Source Tympanic Pulse Oximetry (%) 97 Oxygen Delivery Method Room Air Intake Visit Reasons: f/u hypertension Intake Note: follow up for hypertension Allergies acetaminophen [Vicodin] Allergy (Unknown, Verified 09/19/23 09:25) nausea and vomiting hydrocodone [Vicodin] Allergy (Unknown, Verified 09/19/23 09:25) nausea and vomiting penicillin V Allergy (Unknown, Verified 09/19/23 09:25) nausea and vomiting latex Adverse Reaction (Intermediate, Verified 09/19/23 09:25) Hives Codeine Sulfate Allergy (Unknown, Uncoded 06/17/23 09:33) nausea and vomiting Pentothal Allergy (Unknown, Uncoded 06/17/23 09:33) nausea and vomiting Tobacco use date assessed: 06/17/23 Dental Screening Dental Screen Date: 06/17/23 HPI f/u hypertension HPI Details 78 y/o female presents to f/u hypertension, diabetes. Last A1c 06/17/23 5.7%. Blood pressure today 110/60. She is on Entresto b.i.d., carvedilol 3.125mg b.i.d. Continues to lose weight. She notes she does have an appetite and is eating. Denies any nausea but states she does not tolerate protein shakes. [facility] Medical History (Reviewed 03/17/23 @ 12:23 by Lakeshia Johns [facility]) Chronic lymphocytic leukemia Bladder cancer Benign pigmented skin lesion Surgical History History of hysterectomy History of appendectomy Family History Father No problems noted. Mother No problems noted. Social History Housing: Apartment Patient Tobacco Use Status: Never used Tobacco e-Cigarette/Vaping Use: Never Used Second Hand Smoke Exposure: No service: No Current occupational status: retired Current occupational exposures/hazards: No Cognitive needs: No Hearing needs: No Vision needs: Yes (Patient wears precription glasses.) Questionnaire Thrive Questionnaire Date Thrive assessed: 03/17/23 MAGED-7 AMB Questionnaire MAGED-7 Date MAGED - 7 assessed: 03/17/23 Source: Developed by Drs. Alvin Brandon, Jeny Chaidez, Mario Lopez and colleagues, with an educational stalin from [employer]. Review of Systems Const Denies chills, Denies fatigue, Denies fever(s), Denies headache(s) and Denies weakness ENT Denies dizziness and Denies headache(s) Card Denies dyspnea Resp Denies cough, Denies dyspnea, Denies wheezing and Denies other (shortness of breath) Musc Denies numbness and Denies tingling Neuro Denies dizziness, Denies headache(s), Denies numbness, Denies tingling and Denies weakness Psych Denies anxiety and Denies depression Endo Denies fatigue Aller/Immun Denies wheezing Physical exam (Primary Care) Vital Signs: Last Vital Signs Temp 98 F 09/19/23 09:27 Pulse 70 09/19/23 09:27 Resp 16 09/19/23 09:27 BP 110/60 09/19/23 09:27 Pulse Ox 97 09/19/23 09:27 Oxygen Delivery Method Room Air 09/19/23 09:27 BMI result Body Mass Index 17.7 Tobacco/Smoking Status: Tobacco use Status Tobacco use date assessed 06/17/23 09/19/23 09:29 Patient Tobacco Use Status Never used Tobacco 09/19/23 09:29 e-Cigarette/Vaping Use Never Used 09/19/23 09:29 Thrive Assessment: Date of Thrive Assessment Date Thrive assessed 03/17/23 09/19/23 09:29 Const General: well developed; No acute distress Nutritional Appearance: underweight Orientation/consciousness: patient oriented x3 [facility] Head: Yes normocephalic and Yes atraumatic Eyes General: appearance normal, both eyes and all related structures Pupils: Equal, round and reactive pupils present EOM: EOMs intact bilaterally Resp Effort & Inspection: normal respiratory effort Auscultation: clear to auscultation bilaterally Cardio Rate: regular rate Rhythm: regular rhythm Heart sounds: S1 normal heart sound present, S2 normal heart sound present, no gallops, no murmurs and no rubs Neuro General: patient oriented x3 and gait normal Cranial nerves: Yes Equal, round and reactive pupils present Psych Affect: normal affect Assessment and Plan Assessment & Plan (1) Underweight: Code(s): R63.6 - Underweight Plan: Patient?with?a?history?of?bladder?cancer?and?CLL?continues?to?lose?significant?amounts?of?weight?despite?already?being?underweight Will?check?labs?and?chest?x-ray. Will?refer?her?to?GI She?is?followed?by??Roxy at?the [facility]?and?has?an?appointment?in?November.??I?advised?she?call?for?sooner?appointment. Patient?also?notes?that?she?has?tried?protein?shakes?but?they?make?her?nauseous - as?above,?I?am?referring?her?to?GI (2) Hypertension: Code(s): I10 - Essential (primary) hypertension Plan: Blood?pressure?is?controlled Orders: Orders Comprehensive [place]. Panel Fast Today R63.6 - Underweight, Z00.00 - Encounter for general adult medical examination without abnormal findings Free T4 (Free Thyroxine) Today E03.9 - Hypothyroidism, unspecified, R63.6 - Underweight Thyroid Stimulating Hormone Today E03.9 - Hypothyroidism, unspecified, R63.6 - Underweight XR chest 2V Today R63.6 - Underweight UA and rflx microscopic Today R63.6 - Underweight, Z00.00 - Encounter for general adult medical examination without abnormal findings Complete Blood Count Auto Diff Today R63.6 - Underweight, Z00.00 - Encounter for general adult medical examination without abnormal findings Triiodothyronine T3 Total Today E03.9 - Hypothyroidism, unspecified, R63.6 - Underweight Referrals Gastroenterology Referral R63.6 - Underweight Coding Level of Care Code Est Pt Level 4 (10121) Diagnoses Underweight R63.6 Hypertension I10
[2023-09-19 09:27] VITALS: BP 110/60; PULSE 70; RESP 16; TEMP 36.6; O2SAT 97; BMI 17.7
== END 2023-09-19 09:58 | disposition home or self-care (01) ==
PROVIDERS: PCP Family Medicine; Visit Provider Family Medicine
DX: R63.6 Underweight (principal); I10 Essential (primary) hypertension
CPT/HCPCS: 99214

== ENCOUNTER 2023-09-20 06:37 | Outpatient (REF) | payer OTHER, SELFPAY ==
--- NOTE | ~2023-09-20 | XR_ITS ---
EXAMINATION: XR chest 2V CLINICAL INFORMATION: R63.6 - Underweight COMPARISON: None TECHNIQUE: 2 views of the chest FINDINGS/ XR/XR chest 2V IMPRESSION: Clear lungs. No pneumothorax. No pleural effusion. Normal cardiomediastinal silhouette. Electronically signed by: Cristina Noyola MD 10/18/2023 06:15 PM EDT
[2023-09-20 07:25] LABS: Hemoglobin 8.3 g/dl (12.0-16.0); Mean Corpuscular HGB Conc 26.8 g/dl (31.0-35.0); Mean Corpuscular Hemoglobin 26.1 pg (27.0-33.0); Mean Corpuscular Volume 97.5 fL (80.0-98.0); Mean Platelet Volume 10.2 fL (9.4-12.3); Platelet Count 108 X10*3/uL (160-400); Red Blood Count 3.18 X10*6/uL (4.20-5.50)
[2023-09-20 07:29] LABS: WBC ABN SCTR FOR CBC 1
[2023-09-20 07:59] LABS: Alanine Aminotransferase 19 U/L (0-31); Albumin Level 4.5 g/dL (3.5-5.0); Alkaline Phosphatase 122 U/L (39-117); Anion Gap 12 (12-20); Aspartate Amino Transferase 36 U/L (5-31); Bilirubin Total 0.5 mg/dL (0.0-1.0); Blood Urea Nitrogen 28 mg/dL (9-16); Calcium 9.5 mg/dL (8.4-10.2); Carbon Dioxide 24 mmol/L (22-29); Chloride 110 mmol/L (96-108); Estimated Glomerular Filt Rate 53; Glucose Fasting 108 mg/dL (60-99); Potassium 3.7 mmol/L (3.3-5.1); Sodium 142 mmol/L (135-145); Total Protein 6.6 g/dL (6.5-8.0)
[2023-09-20 08:03] LABS: Atypical Lymphs Percent Manual 1 % (0-6); Lymphocytes Percent Manual 96 % (20-40); Macrocytosis 1+ (5-14) /OIF; Monocytes Percent Manual 1 % (2-11); Neutrophils Percent Manual 2 % (45-73); RBC Morphology NOTED
[2023-09-20 08:04] LABS: Acanthocytes 1+ (0-2) /OIF; Ovalocytes 1+ (5-14) /OIF; Schistocytes 1+ (0-2) /OIF; Smudge Cells PRESENT
[2023-09-20 08:05] LABS: Platelet Estimate DECREASED (NORMAL); Platelet Morphology Comment NORMAL
[2023-09-20 08:12] LABS: Free T4 (Free Thyroxine) 0.95 ng/dL (0.71-1.85); Thyroid Stimulating Hormone 4.66 uIU/mL (0.32-4.0)
[2023-09-20 08:38] LABS: Atypical Lymph Absolute Manual 3.5 x10*3/uL; Lymphocytes Absolute Manual 338.3 X10*3/uL (1.2-4.9); Monocytes Absolute Manual 3.5 X10*3/uL (0.1-1.2); White Blood Count 352.4 X10*3/uL (4.8-10.8)
[2023-09-20 08:49] LABS: Band Neutrophils Percent 0 % (3-5)
[2023-09-20 11:15] LABS: Appearance Urine Clear; Color Urine Yellow; Glucose Urine UA Negative (Negative); Leukocyte Esterase Urine Negative (Negative); Nitrite Urine Negative (Negative); Specific Gravity - Urine <= 1.005 (1.005-1.025); Urine Blood Negative (Negative); Urine Ketones Negative (Negative); Urine Protein Negative (Neg-Trace)
[2023-09-21 07:18] LABS: Triiodothyronine T3 Total 79 ng/dL (76-181)
== END 2023-09-20 06:38 | disposition home or self-care (01) ==
LOC: HO.XRAY 06:37
PROVIDERS: PCP Family Medicine; Visit Provider Family Medicine
DX: Z00.00 Encounter for general adult medical examination without abnormal findings (principal); R63.6 Underweight; E03.9 Hypothyroidism, unspecified; I10 Essential (primary) hypertension
CPT/HCPCS: 36415; 71046; 80053; 81003; 84439; 84443; 84480; 85007; 85025; 85027

== ENCOUNTER 2023-09-27 13:08 | Outpatient (AMB) | payer OTHER, SELFPAY ==
--- NOTE | 2023-09-27 13:16 | MHC.PC.OV ---
Vital Signs 09/27/23 13:18 Height 5 ft 8 in Weight 118 lb BMI 17.9 BP 104/64 Blood Pressure Location Rt brachial Position Sitting Respiration 16 Pulse 78 Pulse Source Pulse Oximeter Temp 98 F Temp Source Tympanic Pulse Oximetry (%) 97 Oxygen Delivery Method Room Air Intake Visit Reasons: f/u underweight, labs Intake Note: follow up with labs Allergies acetaminophen [Vicodin] Allergy (Unknown, Verified 09/27/23 13:18) nausea and vomiting hydrocodone [Vicodin] Allergy (Unknown, Verified 09/27/23 13:18) nausea and vomiting penicillin V Allergy (Unknown, Verified 09/27/23 13:18) nausea and vomiting latex Adverse Reaction (Intermediate, Verified 09/27/23 13:18) Hives Codeine Sulfate Allergy (Unknown, Uncoded 06/17/23 09:33) nausea and vomiting Pentothal Allergy (Unknown, Uncoded 06/17/23 09:33) nausea and vomiting Tobacco use date assessed: 06/17/23 Dental Screening Dental Screen Date: 06/17/23 HPI f/u underweight, labs HPI Details 78 y/o female presents to f/u underweight, labs. Labs drawn 09/20/23. Reviewed labs with pt. Significantly elevated WBC 352.4 - continues to increase. Hx of chronic lymphocytic leukemia. TSH 4.66. She is on levothyroxine 50 mcg daily. Pt has had significant weight loss. She has an appt. with [facility] next week. HPI Comments History of Present Illness Details Documentation assistance for Madhu Zimmerman MD, was provided by Winston Adame,? Nuclear Equipment Test Engineer on 09/27/2023 at 1:31 PM EST. I, Dr. Zimmerman, have read, observed, and verified documentation. REPLACED BY [facility] Medical History Chronic lymphocytic leukemia Bladder cancer Benign pigmented skin lesion Surgical History History of hysterectomy History of appendectomy Family History Father No problems noted. Mother No problems noted. Social History Housing: Apartment Patient Tobacco Use Status: Never used Tobacco e-Cigarette/Vaping Use: Never Used Second Hand Smoke Exposure: No service: No Current occupational status: retired Current occupational exposures/hazards: No Cognitive needs: No Hearing needs: No Vision needs: Yes (Patient wears precription glasses.) Questionnaire Thrive Questionnaire Date Thrive assessed: 03/17/23 MAGED-7 AMB Questionnaire MAGED-7 Date MAGED - 7 assessed: 03/17/23 Source: Developed by Drs. Alvin Brandon, Jeny Chaidez, Mario Lopez and colleagues, with an educational stalin from [employer]). Review of Systems Const Denies chills, Denies fatigue, Denies fever(s), Denies headache(s) and Denies weakness ENT Denies dizziness and Denies headache(s) Card Denies dyspnea Resp Denies cough, Denies dyspnea, Denies wheezing and Denies other (shortness of breath) Musc Denies numbness and Denies tingling Neuro Denies dizziness, Denies headache(s), Denies numbness, Denies tingling and Denies weakness Psych Denies anxiety and Denies depression Endo Denies fatigue Aller/Immun Denies wheezing Physical exam (Primary Care) Vital Signs: Last Vital Signs Temp 98 F 09/27/23 13:18 Pulse 78 09/27/23 13:18 Resp 16 09/27/23 13:18 BP 104/64 09/27/23 13:18 Pulse Ox 97 09/27/23 13:18 Oxygen Delivery Method Room Air 09/27/23 13:18 BMI result Body Mass Index 17.9 Tobacco/Smoking Status: Tobacco use Status Tobacco use date assessed 06/17/23 09/27/23 13:21 Patient Tobacco Use Status Never used Tobacco 09/27/23 13:21 e-Cigarette/Vaping Use Never Used 09/27/23 13:21 Thrive Assessment: Date of Thrive Assessment Date Thrive assessed 03/17/23 09/27/23 13:21 Const General: well developed; No acute distress Nutritional Appearance: well nourished Orientation/consciousness: patient oriented x3 HEN[facility] Head: Yes normocephalic and Yes atraumatic Eyes General: appearance normal, both eyes and all related structures Pupils: Equal, round and reactive pupils present EOM: EOMs intact bilaterally Resp Effort & Inspection: normal respiratory effort Auscultation: clear to auscultation bilaterally Cardio Rate: regular rate Rhythm: regular rhythm Heart sounds: S1 normal heart sound present, S2 normal heart sound present, no gallops, no murmurs and no rubs Neuro General: patient oriented x3 and gait normal Cranial nerves: Yes Equal, round and reactive pupils present Psych Affect: normal affect Assessment and Plan Assessment & Plan (1) Chronic lymphocytic leukemia: Code(s): C91.10 - Chronic lymphocytic leukemia of B-cell type not having achieved remission Plan: Patient?has?had?significant?weight?loss?and?white?blood?cell?count?continues?to?increase. I?have?asked?her?hematology?oncologist?to?see?her?sooner?and?they?have?made?an?appointment?for?next?week. (2) Hypothyroidism: Code(s): E03.9 - Hypothyroidism, unspecified Plan: Mild?TSH?elevation?is?likely?secondary?to?the?above?illness No?medication?changes?made?today (3) Underweight: Code(s): R63.6 - Underweight Plan: Also?likely?secondary?to?CLL She?has?an?appointment With??guard I?have?also?made?a?referral?to?gastroenterology Coding Level of Care Code Est Pt Level 3 (09546) Diagnoses Chronic lymphocytic leukemia C91.10 Hypothyroidism E03.9 Underweight R63.6
[2023-09-27 13:18] VITALS: BP 104/64; PULSE 78; RESP 16; TEMP 36.6; O2SAT 97; BMI 17.9
== END 2023-09-27 13:44 | disposition home or self-care (01) ==
PROVIDERS: PCP Family Medicine; Visit Provider Family Medicine
DX: C91.10 Chronic lymphocytic leukemia of B-cell type not having achieved remission (principal); E03.9 Hypothyroidism, unspecified; R63.6 Underweight
CPT/HCPCS: 99213

== ENCOUNTER 2023-09-29 08:22 | Outpatient (AMB) | payer OTHER, SELFPAY ==
[2023-09-29 08:28] VITALS: BP 136/62; PULSE 69; BMI 17.8
--- NOTE | 2023-09-29 08:28 | MHC.OFFVIS ---
Vital Signs 09/29/23 08:28 Height 5 ft 8 in Weight 116 lb 13.52 oz BMI 17.8 BP 136/62 Blood Pressure Location Lt brachial Position Sitting Pulse 69 Intake Visit Reasons: 6 mth f/up [employer] Required: No Accompanied by: Self / Same As Patient Allergies acetaminophen [Vicodin] Allergy (Unknown, Verified 09/27/23 13:18) nausea and vomiting hydrocodone [Vicodin] Allergy (Unknown, Verified 09/27/23 13:18) nausea and vomiting penicillin V Allergy (Unknown, Verified 09/27/23 13:18) nausea and vomiting latex Adverse Reaction (Intermediate, Verified 09/27/23 13:18) Hives Codeine Sulfate Allergy (Unknown, Uncoded 06/17/23 09:33) nausea and vomiting Pentothal Allergy (Unknown, Uncoded 06/17/23 09:33) nausea and vomiting Medication List - Last Reconciled 09/29/23 by Dylon Oscar MD calcium citrate-vitamin D3 315 mg-6.25 mcg (250 unit) (Citracal + Vitamin D Maximum) 1 tab PO DAILY carvedilol (Coreg) 3.125 mg PO BID 90 days levothyroxine 50 mcg PO DAILY 90 days lysine 1,000 mg PO DAILY metformin 250 mg (1/2 x 500 mg) PO DAILY 30 days sacubitril-valsartan 49-51 mg (Entresto) 1 tab PO BID 90 days simvastatin 40 mg PO DAILY 90 days HPI Comments Details: Jackie returns for follow-up regarding cardiomyopathy. She was diagnosed with cardiomyopathy in 2021, after getting echocardiogram done for question of cardiac murmur. She has a history of CLL and being followed by Hematology at [facility]. She also has a history of bladder cancer under control. It seems that she has lost lot of weight recently. Few days back, she had an episode of significant weakness and then palpitations but improved spontaneously. No other complaints like angina or shortness of breath. With regard to the CLL, the white cell count seems to be higher than before and she states she is awaiting her oncology visit. [facility] Medical History Chronic lymphocytic leukemia Bladder cancer Benign pigmented skin lesion Surgical History History of hysterectomy History of appendectomy Family History Father No problems noted. Mother No problems noted. Social History Housing: Apartment Patient Tobacco Use Status: Never used Tobacco e-Cigarette/Vaping Use: Never Used Second Hand Smoke Exposure: No service: No Current occupational status: retired Current occupational exposures/hazards: No Cognitive needs: No Hearing needs: No Vision needs: Yes (Patient wears precription glasses.) Review of Systems Const Denies chills, Denies fatigue, Denies fever(s), Denies weight gain and Denies weight loss ENT Denies dizziness Card Denies chest pain, Denies leg edema, Denies lightheadedness, Denies palpitations, Denies dyspnea on exertion, Denies orthopnea and Denies other Resp Denies cough and Denies dyspnea on exertion GI Denies hematochezia and Denies change in stool character Musc Denies abnormal gait, Denies muscle weakness, Denies numbness, Denies radiating pain into limb and Denies tingling Neuro Denies abnormal gait, Denies dizziness, Denies numbness and Denies tingling Endo Denies fatigue and Denies palpitations Physical Exam Vital Signs: Last Vital Signs Pulse 69 09/29/23 08:28 BP 136/62 09/29/23 08:28 BMI result Body Mass Index 17.8 Const General: comfortable and no acute distress Orientation/consciousness: patient oriented x3 HEENT Other: Unremarkable Head: Yes normal to inspection Neck Neck: Yes normal visual inspection Chest Chest palpation & inspection: normal inspection of the chest Resp Auscultation: clear to auscultation bilaterally Cardio Palpation: normal PMI Heart sounds: S1 normal heart sound present, S2 normal heart sound present, no gallops, Murmur heart sound present systolic II/ and at the right sternal border and no rubs GI Palpation (GI): Soft to palpation Back/Spine/Pelvis Other: unremarkable Skin General skin exam: no rashes or lesions noted Neuro General: patient oriented x3 Extrem General: Yes normal to inspection Psych Mental Status: mental status grossly normal Office Procedures EKG Details: EKG with underlying sinus rhythm at 69/Min; sinus arrhythmia; left bundle-branch block; PVCs. Borderline [place]. [id number], Complete Assessment & Plan Assessment & Plan (1) Cardiomyopathy: Code(s): I42.9 - Cardiomyopathy, unspecified Category: Medical Plan: Last echocardiogram with LVEF of 40-45%. Prior to that 25-30%. In the prior echocardiogram from 2018, LVEF was 60-65%. Myocardial perfusion imaging study shows normal perfusion. Cardiac MRI with LVEF of 43%. RVEF 49%. Thought to be from nonischemic cardiomyopathy. For meds, continue Coreg and Entresto. She does not want any further meds. Due to the recent episode of weakness other symptoms, recheck echocardiogram. (2) Nonrheumatic mitral valve regurgitation: Code(s): I34.0 - Nonrheumatic mitral (valve) insufficiency Category: Medical Plan: Echocardiogram shows [id number] mitral regurgitation. No specific interventions. (3) LBBB (left bundle branch block): Code(s): I44.7 - Left bundle-branch block, unspecified Category: Medical Plan: Chronic finding. (4) Essential hypertension: Code(s): I10 - Essential (primary) hypertension Category: Medical Plan: Stable. (5) PVC (premature ventricular contraction): Code(s): I49.3 - Ventricular premature depolarization Category: Medical Plan: Unclear if this led to the weakness/palpitations. Check Holter. Orders: Orders CA echo transthoracic complete Today I42.9 - Cardiomyopathy, unspecified ECG 14 day holter monitor Today I42.9 - Cardiomyopathy, unspecified, I49.3 - Ventricular premature depolarization Coding Level of Care Code Est Pt Level 4 (66173) Diagnoses Cardiomyopathy I42.9 Nonrheumatic mitral valve regurgitation I34.0 LBBB (left bundle branch block) I44.7 Essential hypertension I10 PVC (premature ventricular contraction) I49.3 CPT Codes EKG - CPT: [id number], Complete ([id number])
== END 2023-09-29 08:47 | disposition home or self-care (01) ==
PROVIDERS: PCP Family Medicine; Visit Provider Internal Medicine
DX: I42.9 Cardiomyopathy, unspecified (principal); I34.0 Nonrheumatic mitral (valve) insufficiency; I44.7 Left bundle-branch block, unspecified; I10 Essential (primary) hypertension; I49.3 Ventricular premature depolarization
CPT/HCPCS: 93010; 99214

== ENCOUNTER → 2023-09-29 08:22 | Outpatient (BNVA) | payer OTHER, SELFPAY | PROVIDERS: PCP Family Medicine; Visit Provider Internal Medicine | DX: I44.7 Left bundle-branch block, unspecified (principal); I49.8 Other specified cardiac arrhythmias; I44.0 Atrioventricular block, first degree; I49.3 Ventricular premature depolarization; I42.9 Cardiomyopathy, unspecified; I34.0 Nonrheumatic mitral (valve) insufficiency; I10 Essential (primary) hypertension | CPT/HCPCS: 93005; 99212 ==

== ENCOUNTER 2023-10-18 13:28 | Outpatient (AMB) | payer OTHER, SELFPAY ==
--- NOTE | 2023-10-18 13:33 | MHC.PC.OV ---
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: No Allergies acetaminophen [Vicodin] Allergy (Unknown, Verified 10/18/23 13:34) nausea and vomiting hydrocodone [Vicodin] Allergy (Unknown, Verified 10/18/23 13:34) nausea and vomiting penicillin V Allergy (Unknown, Verified 10/18/23 13:34) nausea and vomiting latex Adverse Reaction (Intermediate, Verified 10/18/23 13:34) Hives Codeine Sulfate Allergy (Unknown, Uncoded 10/18/23 13:34) nausea and vomiting Pentothal Allergy (Unknown, Uncoded 10/18/23 13:34) nausea and vomiting Medication List - Last Reconciled 10/18/23 by Madhu Zimmerman MD calcium citrate-vitamin D3 315 mg-6.25 mcg (250 unit) (Citracal + Vitamin D Maximum) 1 tab PO DAILY carvedilol (Coreg) 3.125 mg PO BID 90 days levothyroxine 50 mcg PO DAILY 90 days lysine 1,000 mg PO DAILY sacubitril-valsartan 49-51 mg (Entresto) 1 tab PO BID 90 days simvastatin 40 mg PO DAILY 90 days Tobacco use date assessed: 06/17/23 Dental Screening Dental Screen Date: 06/17/23 HPI f/u chronic conditions HPI Details Patient?returns?to?follow-up underweight?status?with CLL and?I?had?gotten?her?a?sooner?appointment?with Lino Ramsey. Weight at 117lb today, 17.8 BMI. A1c today 3.6%. She is on metformin 250mg daily. [facility] Medical History Chronic lymphocytic leukemia Bladder cancer Benign pigmented skin lesion Surgical History History of hysterectomy History of appendectomy Family History Father No problems noted. Mother No problems noted. Social History Housing: Apartment Patient Tobacco Use Status: Never used Tobacco e-Cigarette/Vaping Use: Never Used Second Hand Smoke Exposure: No service: No Current occupational status: retired Current occupational exposures/hazards: No Cognitive needs: No Hearing needs: No Vision needs: Yes (Patient wears precription glasses.) Questionnaire Thrive Questionnaire Date Thrive assessed: 03/17/23 MAGED-7 AMB Questionnaire MAGED-7 Date MAGED - 7 assessed: 03/17/23 Source: Developed by Drs. Alvin Brandon, Jeny Chaidez, Mario Lopez and colleagues, with an educational stalin from [employer]. Review of Systems Const Reports fatigue, Denies headache(s) and Denies weakness ENT Denies dizziness and Denies headache(s) Card Denies dyspnea Resp Denies cough, Denies dyspnea, Denies wheezing and Denies other (shortness of breath) Musc Denies numbness and Denies tingling Neuro Denies dizziness, Denies headache(s), Denies numbness, Denies tingling and Denies weakness Psych Denies anxiety and Denies depression Endo Reports fatigue Aller/Immun Denies wheezing Physical exam (Primary Care) Vital Signs: Last Vital Signs Pulse 85 10/18/23 13:40 Resp 16 10/18/23 13:40 BP 118/62 10/18/23 13:40 Pulse Ox 97 10/18/23 13:40 Oxygen Delivery Method Room Air 10/18/23 13:40 BMI result Body Mass Index 17.8 Tobacco/Smoking Status: Tobacco use Status Tobacco use date assessed 06/17/23 10/18/23 13:33 Patient Tobacco Use Status Never used Tobacco 10/18/23 13:33 e-Cigarette/Vaping Use Never Used 10/18/23 13:33 Thrive Assessment: Date of Thrive Assessment Date Thrive assessed 03/17/23 10/18/23 13:33 Const General: well developed; No acute distress Nutritional Appearance: underweight Orientation/consciousness: patient oriented x3 HENMT Head: Yes normocephalic and Yes atraumatic Eyes General: appearance normal, both eyes and all related structures Pupils: Equal, round and reactive pupils present EOM: EOMs intact bilaterally Resp Effort & Inspection: normal respiratory effort Auscultation: clear to auscultation bilaterally Cardio Rate: regular rate Rhythm: regular rhythm Heart sounds: S1 normal heart sound present, S2 normal heart sound present, no gallops, no murmurs and no rubs Neuro General: patient oriented x3 and gait normal Cranial nerves: Yes Equal, round and reactive pupils present Psych Affect: normal affect Results AMB Hemoglobin A1c AMB Hemoglobin A1c 3.6 % Last Edit by Naty Quiroga CMA on 10/18/23 13:54 Assessment and Plan Assessment & Plan (1) Underweight: Code(s): R63.6 - Underweight Plan: Patient?says?she?is?feeling?better?lately. Continue?to?work?at?regular?meals Will?continue?to?monitor?her?weight?and?we?can?follow-up?in?about?6?weeks. (2) Chronic lymphocytic leukemia: Code(s): C91.10 - Chronic lymphocytic leukemia of B-cell type not having achieved remission Plan: Recent visit with Dr Ramsey. Starting Zanubrutinib 16mg PO BID Follow-up?with?Dr. Ramsey as?recommended (3) Diabetes: Code(s): E11.9 - Type 2 diabetes mellitus without complications Plan: A1c?3.6%?on?metformin?250?mg?daily. She?is?significantly?underweight?still?and?no?longer?need?metformin Encouraged?diet?control?for?her?diabetes?at?this?time Will?continue?to?monitor Orders: Orders AMB Hemoglobin A1c Today E11.9 - Type 2 diabetes mellitus without complications Medications: Discontinued metformin Discontinued Reason: Doctor's Order 250 mg (1/2 x 500 mg) PO DAILY 30 days 15 tabs 2RF Coding Level of Care Code Est Pt Level 3 (42916) Diagnoses Underweight R63.6 Chronic lymphocytic leukemia C91.10 Diabetes E11.9
[2023-10-18 13:40] VITALS: BP 118/62; PULSE 85; RESP 16; O2SAT 97; BMI 17.8
== END 2023-10-18 14:02 | disposition home or self-care (01) ==
PROVIDERS: PCP Family Medicine; Visit Provider Family Medicine
DX: R63.6 Underweight (principal); C91.10 Chronic lymphocytic leukemia of B-cell type not having achieved remission; E11.9 Type 2 diabetes mellitus without complications
CPT/HCPCS: 83036; 99213

== ENCOUNTER → 2023-11-10 10:00 | Outpatient (REF) | payer OTHER, SELFPAY ==
--- NOTE | 2023-11-10 10:02 | HM_ITS ---
* Total monitoring time about 9 days. * Underlying rhythm is sinus with an average rate of 68/Min. * Supraventricular ectopy noted with a burden of 1.6%. * Tachycardia episode at 150/min; unclear if SVT vs atrial flutter. * Ventricular ectopy noted with a burden of 4.5%. Rare couplets, bigeminy, trigeminy. * No significant pauses or high-grade AV blocks. * No patient markers or diary events. MTDD
--- NOTE | 2023-11-10 10:02 | CA_ITS ---
Transthoracic Echocardiogram Patient (Last, First, Middle): Jackie Elizondo, Gender: Female Date of : 1945 Age: 78 Procedure Date: 11/10/2023 Procedure Type: Transthoracic Echocardiogram Location: OP Height: 172.72 cm Weight: 53.52 kg BSA: 1.63 m2 Heart Rate: bpm BP: 150 / 80 mmHg Field Marketing Lead: WALDEMAR Friend MD: Dylon Oscar MD [employer] Intelligence Chief: Felton Louis MD Symptoms: I42.9 - Cardiomyopathy, unspecified Study Quality: Adequate ECG Rhythm: Sinus Conclusions: - 1. Normal LV ejection fraction 55-60% with impaired relaxation filling pattern 2. Moderately dilated left atrium 3. Mild aortic regurgitation and cwwz-kq-wtyfjrxt mitral regurgitation 4. Normal RV systolic pressure 5. Trivial pericardial effusion Findings Left Ventricle Normal left ventricular size, thickness, and systolic function. The visually estimated ejection fraction is between 55-60%. Spectral Doppler is indicative of an impaired relaxation filling pattern. Right Ventricle Mildly increased right ventricular cavity size. There is normal right ventricular systolic function. Atria The left atrium is moderately dilated. There is no evidence of interatrial shunt. The right atrium is likely dilated. Aortic Valve There is mild calcification of the aortic valve. There is no aortic valve stenosis. There is mild aortic valve regurgitation. Mitral Valve There is mild anterior and posterior mitral leaflet thickening. There is mild mitral annular calcification. There is mild to moderate mitral valve regurgitation. There is no mitral valve stenosis. Pulmonic Valve The pulmonic valve is likely normal. There is trace pulmonic valve regurgitation. Tricuspid Valve Normal tricuspid valve structure. There is mild tricuspid valve regurgitation. The right ventricular systolic pressure is normal. The right ventricular systolic pressure is 24 mmHg. Normal right atrial pressure. There is no evidence of pulmonary hypertension. Great Vessels The aorta was not well visualized. The pulmonary artery was not well visualized. Venous The inferior vena cava is normal in size and collapses greater than 50% with inspiration. Pericardium/Pleural There is a trivial loculated pericardial effusion overlying the left ventricle. Prior Study Comparison Changes noted compared to prior study dated: 06/11/2022. LV ejection fraction has improved Measurements 2D Linear Measurements IVSd: 0.98 0.6-0.9/0.6-1.0 cm LVIDd: 4.76 3.9-5.3/4.2-5.9 cm LVIDd Index: 2.92 2.4-3.2/2.2-3.1 cm/m2 LVIDs: 3.93 2.0-3.6 cm LVPWd: 1.14 0.7-1.1 cm LA Diam: 3.80 2.7-3.8/3.0-4.0 cm LAIDs Index: 2.33 1.5-2.3 cm/m2 LV Mass: 226.38 67-162/88-224 g LV Mass Index: 138.88 43-95/49-115 g/m2 LVOT Diam: 1.90 3.0+(-)1.3 cm 2D Systolic Function EF 4C: 49.60 >55% EF 2C: 61.50 >55% EF BiP: 56.60 >55% Mitral Valve MV Pk E: 1.24 MV PK A: 1.41 MV Decel Time: 197.00 E/A: 0.90 E'Lateral: 6.85 E'Medial: 4.90 E/E' Med: 25.30 E/E' Lat: 18.10 PHT: 58.00 MVA PHT: 3.79 Decel Roane: 6.29 MR Vol - PW Dopp: 17.43 MR VTI: 2.49 MR ERO: 7.00 MR Alias Bari: 0.39 MR RAD: 0.40 Aortic Valve AoV Pk Bari: 2.03 AoV Mn Bari: 1.41 AoV VTI: 0.53 AoV Pk Grad: 16.00 Aov Mn Grad: 9.00 RACHID Cont.VTI: 2.04 AI Pk Bari: 4.07 AI Roane: 2.45 LVOT LVOT Pk Bari: 1.42 LVOT Mn Bari: 1.07 LVOT VTI: 0.38 LVOT Pk Grad: 8.00 LVOT Mn Grad: 5.00 LVOT Diam: 1.90 LVOT Area: 2.84 Diastolic Function MV Pk E: 1.24 MV Pk A: 1.41 E/A: 0.90 E'Medial: 4.90 E/E' Med: 25.30 E' Laterial: 6.85 E/E' Lat: 18.10 Right Ventricle TAPSE (mm): 31.70 TVS' Bari: 13.30 Tricuspid Valve TR Pk Bari: 2.29 TR Pk Grad: 21.00 RA Press: 3.00 RVSP: 24.00 Great Vessels Aorta Sinus of Valsalva: 3.30 2.0-3.5 cm Ao Asc: 3.60 2.1-3.4 cm Pulmonary Valve PV Pk Bari: 1.22 Peak PV Grad: 6.00 Updated in Other Vendor System with Status of Final Felton Louis MD electronically signed on 11/10/2023 12:45:11 PM with status of Final
== END ==
LOC: HO.CARD 10:00
PROVIDERS: PCP Family Medicine; Visit Provider Internal Medicine
DX: I42.9 Cardiomyopathy, unspecified (principal); I49.3 Ventricular premature depolarization
CPT/HCPCS: 93246; 93306

== ENCOUNTER → 2023-11-10 10:02 | Outpatient (BNV) | payer OTHER, SELFPAY | PROVIDERS: PCP Family Medicine; Visit Provider Internal Medicine Cardiovascular Disease | DX: R00.0 Tachycardia, unspecified (principal) | CPT/HCPCS: 93248; 93306 ==

== ENCOUNTER 2023-11-29 09:40 | Outpatient (AMB) | payer OTHER, SELFPAY ==
--- NOTE | 2023-11-29 09:54 | MHC.PC.OV ---
Vital Signs 11/29/23 09:56 Height 5 ft 8 in Weight 118 lb 4 oz BMI 18.0 BP 125/60 Blood Pressure Location Rt brachial Position Sitting Respiration 14 Pulse 68 Pulse Source Pulse Oximeter Temp 97.5 F Temp Source Temporal Artery Scan Pulse Oximetry (%) 99 Oxygen Delivery Method Room Air Intake Visit Reasons: F/U UNDERWEIGHT, CHRONIC CONDITIONS Intake Note: f/u for under weight and chronic conditions Allergies acetaminophen [Vicodin] Allergy (Unknown, Verified 11/29/23 09:55) nausea and vomiting hydrocodone [Vicodin] Allergy (Unknown, Verified 11/29/23 09:55) nausea and vomiting penicillin V Allergy (Unknown, Verified 11/29/23 09:55) nausea and vomiting latex Adverse Reaction (Intermediate, Verified 11/29/23 09:55) Hives Codeine Sulfate Allergy (Unknown, Uncoded 10/18/23 13:34) nausea and vomiting Pentothal Allergy (Unknown, Uncoded 10/18/23 13:34) nausea and vomiting Medication List - Last Reconciled 11/29/23 by Madhu Zimmerman MD calcium citrate-vitamin D3 315 mg-6.25 mcg (250 unit) (Citracal + Vitamin D Maximum) 1 tab PO DAILY levothyroxine 50 mcg PO DAILY 90 days lysine 1,000 mg PO DAILY sacubitril-valsartan 49-51 mg (Entresto) 1 tab PO BID 90 days simvastatin 40 mg PO DAILY 90 days [Toperol xl 25 mg one tab daily ] Tobacco use date assessed: 06/17/23 Dental Screening Dental Screen Date: 06/17/23 HPI F/U UNDERWEIGHT, CHRONIC CONDITIONS HPI Details 78 y/o female presents to f/u underweight, poor appetite. Weight today 118lbs, 117 lbs from 10/18/23. She continues to eat a lot of eggs, meats. [facility] Medical History Chronic lymphocytic leukemia Bladder cancer Benign pigmented skin lesion Surgical History History of hysterectomy History of appendectomy Family History Father No problems noted. Mother No problems noted. Social History (Reviewed 08/22/24 @ 08:29 by Dali Melara BRUSH HANDNabeel Housing: Apartment Patient Tobacco Use Status: Never used Tobacco e-Cigarette/Vaping Use: Never Used Second Hand Smoke Exposure: No service: No Current occupational status: retired Current occupational exposures/hazards: No Cognitive needs: No Hearing needs: No Vision needs: Yes (Patient wears precription glasses.) Questionnaire PHQ-9 Over the last 2 weeks, how often have you been bothered by any of the following problems? 1. Little interest or pleasure in doing things: not at all 2. Feeling down, depressed, or hopeless: not at all 3. Trouble falling or staying asleep, or sleeping too much: not at all 4. Feeling tired or having little energy: not at all 5. Poor appetite or overeating: not at all 6. Feeling bad about yourself - or that you are a failure or have let yourself or your family down: not at all 7. Trouble concentrating on things, such as reading the newspaper or watching television: not at all 8. Moving or speaking so slowly that other people could have noticed. Or the opposite - being so fidgety or restless that you have been moving around a lot more than usual: not at all 9. Thoughts that you would be better off or of hurting yourself in some way: not at all Total score: 0 Source: Developed by Drs. Alvin Brandon, Jeny Chaidez, Mario Lopez and colleagues, with an educational stalin from [employer]. Thrive Questionnaire Date Thrive assessed: 03/17/23 I am a: Patient What is your living situation today?: I have a steady place to live Within the past 12 months, did the food you bought not last and you didn't have the money to get more?: Never true Within the past 12 months, did you worry whether your food would run out before you got money to buy more?: Never true Do you have trouble paying for medicines?: No Do you have trouble getting transportation to medical appointments?: No Do you have trouble paying your heating and electricity bill?: No Do you have trouble taking care of your child, family member or friend?: I choose not to answer this question Do you have trouble with day-to-day activities such as bathing, preparing meals, shopping, managing finances, etc.?: No Are you currently unemployed and looking for a job?: No Are you interested in more education?: No Please select the resources that you would like help with: None Currently or been in a relationship where the following occur: No concerns reported THRIVE Score: 0 AUDIT C Alcohol Use Questionnaire (AUDIT-C) 1. How often do you have a drink containing alcohol?: Never Total Score: 0 MAGED-7 AMB Questionnaire MAGED-7 Date MAGED - 7 assessed: 03/17/23 Feeling nervous, anxious, or on edge: 0 = Not at all Not being able to stop or control worryin = Not at all Worrying too much about different things: 0 = Not at all Trouble relaxin = Not at all Being so restless that it is hard to sit still: 0 = Not at all Becoming easily annoyed or irritable: 0 = Not at all Feeling afraid as if something awful might happen: 0 = Not at all Total MAGED-7 score (0-4 normal; 5-9 mild; 10-14 moderate; 15-21 severe): 0 Source: Developed by Drs. Alvin Brandon, Jeny Chaidez, Mario Lopez and colleagues, with an educational stalin from [employer]. Review of Systems Const Denies chills, Denies fatigue, Denies fever(s), Denies headache(s) and Denies weakness ENT Denies dizziness and Denies headache(s) Card Denies dyspnea Resp Denies cough, Denies dyspnea, Denies wheezing and Denies other (shortness of breath) Musc Denies numbness and Denies tingling Neuro Denies dizziness, Denies headache(s), Denies numbness, Denies tingling and Denies weakness Psych Denies anxiety and Denies depression Endo Denies fatigue Aller/Immun Denies wheezing Physical exam (Primary Care) Vital Signs: Last Vital Signs Temp 97.5 F 11/29/23 09:56 Pulse 68 11/29/23 09:56 Resp 14 11/29/23 09:56 BP 125/60 11/29/23 09:56 Pulse Ox 99 11/29/23 09:56 Oxygen Delivery Method Room Air 11/29/23 09:56 BMI result Body Mass Index 18.0 Tobacco/Smoking Status: Tobacco use Status Tobacco use date assessed 06/17/23 11/29/23 09:58 Patient Tobacco Use Status Never used Tobacco 11/29/23 09:58 e-Cigarette/Vaping Use Never Used 11/29/23 09:58 PHQ-9: PHQ-9 Score PHQ-9: Total score 0 11/29/23 09:59 Thrive Assessment: Date of Thrive Assessment Date Thrive assessed 03/17/23 11/29/23 09:58 Currently or been in a relationship where the following occur: No concerns reported Const General: well developed; No acute distress Nutritional Appearance: underweight Orientation/consciousness: patient oriented x3 HENIA Head: Yes normocephalic and Yes atraumatic Eyes General: appearance normal, both eyes and all related structures Pupils: Equal, round and reactive pupils present EOM: EOMs intact bilaterally Resp Effort & Inspection: normal respiratory effort Auscultation: clear to auscultation bilaterally Cardio Rate: regular rate Rhythm: regular rhythm Heart sounds: S1 normal heart sound present, S2 normal heart sound present, no gallops, no murmurs and no rubs Neuro General: patient oriented x3 and gait normal Cranial nerves: Yes Equal, round and reactive pupils present Psych Affect: normal affect Coding Level of Care Code Est Pt Level 4 (35101) Diagnoses Underweight R63.6 Diabetes E11.9 Nail deformity L60.8 Chronic lymphocytic leukemia C91.10 Assessment & Plan Assessment & Plan (1) Underweight: Code(s): R63.6 - Underweight Category: Medical Plan: Weight?and?appetite?are?improved. Continue?working?on?diet?with?increased?calories?and?protein. Will?continue?to?monitor (2) Diabetes: Code(s): E11.9 - Type 2 diabetes mellitus without complications Category: Medical Plan: Now?diet?controlled Had?stopped?metformin?as?weight?had?continue?to?decrease?and?A1c?was?below?4% Continue?diet?control Will?follow-up?with?A1c?at?next?visit (3) Nail deformity: Code(s): L60.8 - Other nail disorders Category: Medical Plan: Left?great?toe?nail?deformity?with?pain?and?difficulty?wearing?shoe Referred?to?Podiatry (4) Chronic lymphocytic leukemia: Code(s): C91.10 - Chronic lymphocytic leukemia of B-cell type not having achieved remission Category: Medical Plan: Patient?was?prescribed?BTK?inhibitor?by?her?hematology?oncologist,??Roxy She?has?not?started?this?yet?due?to?concerns?about?adverse?effects. Encouraged?her?to?start?medication?as?prescribed?by?her?specialist. She?can?call?her?specialist?if?she?has?any?adverse?effects. Orders: Referrals Podiatry Referral L60.8 - Other nail disorders
[2023-11-29 09:56] VITALS: BP 125/60; PULSE 68; RESP 14; TEMP 36.4; O2SAT 99; BMI 18.0
== END 2023-11-29 10:31 | disposition home or self-care (01) ==
PROVIDERS: PCP Family Medicine; Visit Provider Family Medicine
DX: R63.6 Underweight (principal); E11.9 Type 2 diabetes mellitus without complications; L60.8 Other nail disorders; C91.10 Chronic lymphocytic leukemia of B-cell type not having achieved remission

== ENCOUNTER → 2023-11-29 09:40 | Outpatient (BNVA) | payer OTHER, SELFPAY | PROVIDERS: PCP Family Medicine; Visit Provider Family Medicine | DX: R63.6 Underweight (principal); Z68.1 Body mass index [BMI] 19.9 or less, adult; E11.9 Type 2 diabetes mellitus without complications; L60.8 Other nail disorders; C91.10 Chronic lymphocytic leukemia of B-cell type not having achieved remission | CPT/HCPCS: 96127; 99212 ==

== ENCOUNTER 2024-01-03 13:42 | Outpatient (AMB) | payer OTHER, SELFPAY ==
[2024-01-03 14:05] VITALS: BP 138/62; PULSE 67; BMI 18.0
--- NOTE | 2024-01-03 14:05 | MHC.OFFVIS ---
Vital Signs 01/03/24 14:05 Height 5 ft 8 in Weight 118 lb 9.739 oz BMI 18.0 BP 138/62 Blood Pressure Location Lt brachial Position Sitting Pulse 67 Pulse Source Pulse Oximeter Intake Visit Reasons: 3 mth fu echo/holter (HS) Survival Equipment Repairer Required: No Allergies acetaminophen [Vicodin] Allergy (Unknown, Verified 01/03/24 14:09) nausea and vomiting hydrocodone [Vicodin] Allergy (Unknown, Verified 01/03/24 14:09) nausea and vomiting penicillin V Allergy (Unknown, Verified 01/03/24 14:09) nausea and vomiting latex Adverse Reaction (Intermediate, Verified 01/03/24 14:09) Hives Codeine Sulfate Allergy (Unknown, Uncoded 01/03/24 14:09) nausea and vomiting Pentothal Allergy (Unknown, Uncoded 01/03/24 14:09) nausea and vomiting Medication List - Last Reconciled 01/03/24 by Eileen Gonzalez, REFRACTORY FURNACE DESIGNER-C calcium citrate-vitamin D3 315 mg-6.25 mcg (250 unit) (Citracal + Vitamin D Maximum) 1 tab PO DAILY levothyroxine 50 mcg PO DAILY 90 days lysine 1,000 mg PO DAILY sacubitril-valsartan 49-51 mg (Entresto) 1 tab PO BID 90 days simvastatin 40 mg PO DAILY 90 days [Toperol xl 25 mg one tab daily ] HPI HPI 3 mth fu echo/holter (HS): Details: Jackie is a 78-year-old female with past medical history of hypertension, hyperlipidemia, prediabetes, left bundle branch block, mitral regurgitation, nonischemic cardiomyopathy who recently had an echocardiogram and Holter monitor and now presents for follow-up. Today she reports that she has been feeling good with no concerning symptoms. She denies chest discomfort at rest or with activity. No heart palpitations, lightheadedness, presyncope, syncope, falls. No shortness of breath, PND, orthopnea or edema. She goes for walks and goes to the senior center routinely both of which she tolerates well. She is compliant with her medications. She follows at [facility] for [facility] Medical History Chronic lymphocytic leukemia Bladder cancer Benign pigmented skin lesion Surgical History History of hysterectomy History of appendectomy Family History Father No problems noted. Mother No problems noted. Social History Housing: Apartment Patient Tobacco Use Status: Never used Tobacco e-Cigarette/Vaping Use: Never Used Second Hand Smoke Exposure: No service: No Current occupational status: retired Current occupational exposures/hazards: No Cognitive needs: No Hearing needs: No Vision needs: Yes (Patient wears precription glasses.) Review of Systems Const All systems reviewed & are unremarkable except as noted in HPI and below ENT Denies dizziness Card Denies chest pain, Denies chest pain at rest, Denies chest pain with activity, Denies rapid heart rate, Denies pedal edema, Denies edema, Denies leg edema, Denies lightheadedness, Denies palpitations, Denies dyspnea, Denies dyspnea on exertion and Denies orthopnea Resp Denies cough, Denies dyspnea and Denies dyspnea on exertion GI Denies hematochezia and Denies change in stool character Musc Denies abnormal gait, Denies limited range of motion, Denies muscle cramps, Denies muscle weakness, Denies numbness, Denies radiating pain into limb, Denies stiffness and Denies tingling Neuro Denies abnormal gait, Denies dizziness, Denies numbness and Denies tingling Endo Denies palpitations Physical Exam Vital Signs: Last Vital Signs Pulse 67 01/03/24 14:05 BP 138/62 01/03/24 14:05 BMI result Body Mass Index 18.0 Const Other: thin, elderly female General: cooperative, comfortable and no acute distress Orientation/consciousness: patient oriented x3 Neck Neck: Yes normal visual inspection and Yes no JVD Resp Effort & Inspection: normal respiratory effort Auscultation: clear to auscultation bilaterally, no crackles, no rales, no rhonchi and no wheezes Cardio Jugular venous distension: no JVD Rate: regular rate Rhythm: regular rhythm Heart sounds: S1 normal heart sound present, S2 normal heart sound present, Murmur heart sound present (systolic, mitral position) and no rubs Neuro General: patient oriented x3 Extrem General: Yes normal to inspection, No no pedal edema and No calf tenderness Psych Appearance: grossly normal Mental Status: mental status grossly normal Speech and movement: Normal speech and movement present Assessment & Plan Assessment & Plan (1) Cardiomyopathy: Code(s): I42.9 - Cardiomyopathy, unspecified Category: Medical Plan: History of nonischemic cardiomyopathy with EF as low as 25-30% in the past. More recently EF has improved. Last echo done 11/10/2023 shows EF 55-60%, moderate dilated left atrium, mild AR, [id number] MR. No signs of fluid overload on examination. She was recently changed from carvedilol to metoprolol due to findings of tachycardia on her Holter monitor. She reports compliance with metoprolol XL 25 mg daily. She had previously reported palpitations but had not had recurrent episodes. She is on Entresto and metoprolol XL for neurohormonal modulation. She is not requiring diuretics. Signs and symptoms of heart failure reviewed. (2) Tachycardia: Code(s): R00.0 - Tachycardia, unspecified Category: Medical Plan: On last visit she reported an episode of heart palpitations. Holter monitor done 11/10/2023 for 9 days shows sinus rhythm with average heart rate 68, SVE 1.6% of the time, episode of tachycardia, rate 150 beats per minute, SVT however a F not excluded, ventricular ectopy with burden 4.5%, rare couplets, bigeminy and trigeminy. At that time her carvedilol was changed to metoprolol XL. A recent EF is normal. Today her she reports that she has not had recurrent heart palpitations. Resting heart rate 67. Will continue metoprolol at current dose. Will plan for a cardiology follow-up in 4 months to re-evaluate symptoms, eval for SVT, AF. Emergency care if ever needed for symptoms. (3) PVC (premature ventricular contraction): Code(s): I49.3 - Ventricular premature depolarization Category: Medical Plan: As above (4) Nonrheumatic mitral valve regurgitation: Code(s): I34.0 - Nonrheumatic mitral (valve) insufficiency Category: Medical Plan: [id number] mitral regurgitation. Murmur noted on examination. No signs of heart failure. Will plan for repeat echo 1 year from last, due 11/2024 (5) LBBB (left bundle branch block): Code(s): I44.7 - Left bundle-branch block, unspecified Category: Medical Plan: Noted on EKGs, not new (6) Hypertension: Code(s): I10 - Essential (primary) hypertension Category: Medical Plan: Adequately controlled at present. No med changes made. Plan Time spent on chart review, documentation, interview and assessment Orders: Orders CA echo transthoracic complete 11 Months I34.0 - Nonrheumatic mitral (valve) insufficiency Coding Level of Care Code Est Pt Level 4 (04584) Complex EM visit Add On G2211 Diagnoses Cardiomyopathy I42.9 Tachycardia R00.0 PVC (premature ventricular contraction) I49.3 Nonrheumatic mitral valve regurgitation I34.0 LBBB (left bundle branch block) I44.7 Hypertension I10 Time Spent (min) 28
== END 2024-01-03 14:39 | disposition home or self-care (01) ==
PROVIDERS: PCP Family Medicine; Visit Provider Nurse Practitioner Family
DX: I42.9 Cardiomyopathy, unspecified (principal); R00.0 Tachycardia, unspecified; I49.3 Ventricular premature depolarization; I34.0 Nonrheumatic mitral (valve) insufficiency; I44.7 Left bundle-branch block, unspecified; I10 Essential (primary) hypertension
CPT/HCPCS: 99214

== ENCOUNTER → 2024-01-03 13:42 | Outpatient (BNVA) | payer OTHER, SELFPAY | PROVIDERS: PCP Family Medicine; Visit Provider Nurse Practitioner Family | DX: I10 Essential (primary) hypertension (principal); I44.7 Left bundle-branch block, unspecified; I34.0 Nonrheumatic mitral (valve) insufficiency; I42.9 Cardiomyopathy, unspecified; I49.3 Ventricular premature depolarization; R00.0 Tachycardia, unspecified; E78.5 Hyperlipidemia, unspecified; R73.03 Prediabetes | CPT/HCPCS: 99212 ==

== ENCOUNTER 2024-04-17 08:34 | Outpatient (AMB) | payer OTHER, SELFPAY ==
--- NOTE | 2024-04-17 08:56 | MHC.PC.OV ---
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 Allergies acetaminophen [Vicodin] Allergy (Unknown, Verified 04/17/24 09:01) nausea and vomiting hydrocodone [Vicodin] Allergy (Unknown, Verified 04/17/24 09:01) nausea and vomiting penicillin V Allergy (Unknown, Verified 04/17/24 09:01) nausea and vomiting latex Adverse Reaction (Intermediate, Verified 04/17/24 09:01) Hives Codeine Sulfate Allergy (Unknown, Uncoded 01/03/24 14:09) nausea and vomiting Pentothal Allergy (Unknown, Uncoded 01/03/24 14:09) nausea and vomiting Medication List - Last Reconciled 04/17/24 by Madhu Zimmerman MD allopurinol 300 mg PO DAILY calcium citrate-vitamin D3 315 mg-6.25 mcg (250 unit) (Citracal + Vitamin D Maximum) 1 tab PO DAILY levothyroxine 50 mcg PO DAILY 90 days lysine 1,000 mg PO DAILY metoprolol succinate ER 25 mg PO DAILY sacubitril-valsartan 49-51 mg (Entresto) 1 tab PO BID 90 days simvastatin 40 mg PO DAILY 90 days [Toperol xl 25 mg one tab daily ] zanubrutinib (Brukinsa) 80 mg PO DAILY Tobacco use date assessed: 06/17/23 Dental Screening Dental Screen Date: 06/17/23 HPI F/U Diabetes, Underweight, Chronic Conditions HPI Details 78 y/o female presents to f/u diabetes, underweight, chronic conditions. A1c today 04/17/24 6.2%. Weight has increased mildly since last office visit in December - 118 lbs to 120lbs. HPI Comments History of Present Illness Details Documentation assistance for Madhu Zimmerman MD, was provided by Winston Adame,? Tow Truck Dispatcher on 04/17/2024 at 9:19 AM EST. I, Dr. Zimmerman, have read, observed, and verified documentation. [facility] Medical History Chronic lymphocytic leukemia Bladder cancer Benign pigmented skin lesion Surgical History History of hysterectomy History of appendectomy Family History Father No problems noted. Mother No problems noted. Social History Housing: Apartment Patient Tobacco Use Status: Never used Tobacco e-Cigarette/Vaping Use: Never Used Second Hand Smoke Exposure: No service: No Current occupational status: retired Current occupational exposures/hazards: No Cognitive needs: No Hearing needs: No Vision needs: Yes (Patient wears precription glasses.) Questionnaire PHQ-9 Over the last 2 weeks, how often have you been bothered by any of the following problems? 1. Little interest or pleasure in doing things: not at all 2. Feeling down, depressed, or hopeless: not at all 3. Trouble falling or staying asleep, or sleeping too much: not at all 4. Feeling tired or having little energy: nearly every day 5. Poor appetite or overeating: not at all 6. Feeling bad about yourself - or that you are a failure or have let yourself or your family down: not at all 7. Trouble concentrating on things, such as reading the newspaper or watching television: not at all 8. Moving or speaking so slowly that other people could have noticed. Or the opposite - being so fidgety or restless that you have been moving around a lot more than usual: not at all 9. Thoughts that you would be better off or of hurting yourself in some way: not at all Total score: 3 Source: Developed by Drs. Alvin Brandon, Jeny Chaidez, Mario Lopez and colleagues, with an educational stalin from [employer]. Thrive Questionnaire Date Thrive assessed: 02/21/24 I am a: Patient What is your living situation today?: I have a steady place to live Within the past 12 months, did the food you bought not last and you didn't have the money to get more?: Never true Within the past 12 months, did you worry whether your food would run out before you got money to buy more?: Never true Do you have trouble paying for medicines?: No Do you have trouble getting transportation to medical appointments?: No Do you have trouble paying your heating and electricity bill?: No Do you have trouble taking care of your child, family member or friend?: No Do you have trouble with day-to-day activities such as bathing, preparing meals, shopping, managing finances, etc.?: No Are you currently unemployed and looking for a job?: No Are you interested in more education?: No Please select the resources that you would like help with: None Currently or been in a relationship where the following occur: No concerns reported THRIVE Score: 0 MAGED-7 AMB Questionnaire MAGED-7 Date MAGED - 7 assessed: 03/17/23 Source: Developed by Drs. Alvin Brandon, Jeny Chaidez, Mario Lopez and colleagues, with an educational stalin from [employer]. Review of Systems Const Denies chills, Denies fatigue, Denies fever(s), Denies headache(s) and Denies weakness ENT Denies dizziness and Denies headache(s) Card Denies chest pain, Denies lightheadedness, Denies dyspnea and Denies other (Palpitations) Resp Denies cough, Denies dyspnea, Denies wheezing and Denies other ( shortness of breath) Musc Denies numbness and Denies tingling Neuro Denies dizziness, Denies headache(s), Denies numbness, Denies tingling, Denies paresthesias and Denies weakness Psych Denies anxiety and Denies depression Endo Denies fatigue Aller/Immun Denies wheezing Physical exam (Primary Care) Vital Signs: Last Vital Signs Temp 98.0 F 04/17/24 09:03 Pulse 77 04/17/24 09:03 Resp 14 04/17/24 09:03 BP 140/70 H 04/17/24 09:03 Pulse Ox 97 04/17/24 09:03 Oxygen Delivery Method Room Air 04/17/24 09:03 BMI result Body Mass Index 18.2 Tobacco/Smoking Status: Tobacco use Status Tobacco use date assessed 06/17/23 04/17/24 08:58 Patient Tobacco Use Status Never used Tobacco 04/17/24 08:58 e-Cigarette/Vaping Use Never Used 04/17/24 08:58 PHQ-9: PHQ-9 Score PHQ-9: Total score 3 04/17/24 09:20 Thrive Assessment: Date of Thrive Assessment Date Thrive assessed 02/21/24 04/17/24 08:58 Currently or been in a relationship where the following occur: No concerns reported Const General: no acute distress and well developed Nutritional Appearance: underweight Orientation/consciousness: patient oriented x3 HENMT Head: Yes normocephalic and Yes atraumatic Eyes General: appearance normal, both eyes and all related structures Pupils: Equal, round and reactive pupils present EOM: EOMs intact bilaterally Resp Effort & Inspection: normal respiratory effort Auscultation: clear to auscultation bilaterally Cardio Rate: regular rate Rhythm: regular rhythm Heart sounds: S1 normal heart sound present, S2 normal heart sound present, no gallops, Murmur heart sound present and no rubs Neuro General: patient oriented x3 and gait normal Cranial nerves: Yes Equal, round and reactive pupils present Psych Affect: normal affect Results AMB Hemoglobin A1c AMB Hemoglobin A1c 6.2 % Last Edit by RICKY Powell on 04/17/24 09:09 Results Reviewed Results Reviewed: Laboratory Last Values Hgb A1c (Clinic) 6.2 % (4.0-6.0) H 04/17/24 09:07 Coding Level of Care Code Est Pt Level 4 (98457) Diagnoses Diabetes E11.9 Underweight R63.6 Chronic lymphocytic leukemia C91.10 Essential hypertension I10 Assessment & Plan Assessment & Plan (1) Diabetes: Code(s): E11.9 - Type 2 diabetes mellitus without complications Category: Medical Plan: Diet-controlled?diabetes. Patient?had?been?on?metformin?in?the?past?and?this?was?discontinued. A1c?remains?at?6.2%. Good?control?and?goal?is?less?than?7.0% Continue?diet?control (2) Underweight: Code(s): R63.6 - Underweight Category: Medical Plan: She?continues?to?gain?a?little?weight Will?continue?to?monitor (3) Chronic lymphocytic leukemia: Code(s): C91.10 - Chronic lymphocytic leukemia of B-cell type not having achieved remission Category: Medical Plan: Currently?stable Follow-up?with?Hematology-Oncology?as?recommended (4) Essential hypertension: Code(s): I10 - Essential (primary) hypertension Category: Medical Plan: Blood?pressure?is?a?little?elevated?today. Has?been?fairly?well?controlled?at?prior?visits No?medication?changes?made?today. Encouraged?healthy?diet,?exercise?and?rest Will?continue?to?monitor Continue?current?medication?regimen Orders: Orders AMB Hemoglobin A1c Today E11.9 - Type 2 diabetes mellitus without complications Referrals Urology Referral R82.90 - Unspecified abnormal findings in urine
[2024-04-17 09:03] VITALS: BP 140/70; PULSE 77; RESP 14; TEMP 36.7; O2SAT 97; BMI 18.2
--- OUTSIDE RECORDS SUMMARY | 2024-04-17 09:15 | XMS_ITS | Patient Health Record ---
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 Role Phone Madhu Zimmerman MD Primary Care Provider Kate Marie Unavailable [phone] Allergies Allergen (clinical drug ingredient) Drug/Non Drug Allergy documented on EMR Reaction Allergy Type Onset Date Status codeine Codeine nausea and vomiting Drug Allergy Active Latex Latex rash Allergy Active morphine Morphine nausea and vomiting Drug Allergy Active Penicillin nausea and vomiting Drug Allergy Active Reason For Referral Diagnosis 1 Pain in unspecified foot (M79.673) Referring Provider First Name Madhu Referring Provider Last Name Elsie Referring Provider Speciality Internal M edicine [facility] Referred Provider Kate Juan Referred Address [address],[place], [place],[address], Referred Provider Specialty Podiatry Referral Priority Routine Medications Medication SIG (Take, Route, Frequency, Duration) Notes Start Date End Date Status Lysine 1000 MG as directed Orally Active Citric Acid-D Gluconic Acid Active Metoprolol Succinate 25 MG 1 capsule Ora lly Once a day Active Simvastatin 40 MG 1 tablet in the even ing Orally Once a day Active Levothyroxine Sodium 50 MCG 1 tablet in the morning on an empty stomach Orally Once a day Active Social History Tobacco Use: Social History Observation Description Date Details (start date - stop date) Former Smoker NA - NA Tobacco use other than smoking: Question Answer Notes Are you an other tobacco user? No Tobacco Control (Standard) Question Answer Notes Tobacco use: Former smoker Additional Findings: Tobacco non-user Ex-cigaret te smoker AUDIT-C (Standard) Question Answer Notes Did you have a drink containing alcohol in the p ast year? No Points 0 Interpretation Negative Vital Signs Blood pressure diastolic 60 mm Hg 01/30/2024 Height 5ft8in in 01/30/2024 Blood pressure systolic 116 mm Hg 01/30/2024 Weight 118 lbs 01/30/2024 BMI 17.94 kg/m2 01/30/2024 Encounters Encounter Location Date Provider Diagnosis [facility] [address] 01/30/2024 Kate Juan Onychomycosis B35.1 and Pain in left toe(s) M79.[address] [facility] [address] 12/06/2023 Kate Juan Assessments Encounter Date Diagnosis (ICD Code) Assessment Notes Treatment Notes Treatment Clinical Notes Section Notes 01/30/2024 Pain in left toe(s) (ICD-10 - M79.675) 01/30/2024 Onychomycosis (ICD-10 - B35.1) Plan Of Treatment No Information Insurance Providers Payer Name Payer Address Payer Phone Subscriber Number Group Number Insured Name Patient Relationship to Insured Coverage Start Date Coverage End Date [facility] Health Plan [address] [place] [id number] Jackie Elizondo Self - patient is the insured Medical (General) History Medical History History ICD Code Cancer Heart disease Mumps Chicken pox Surgical History Surgery Date(Month/Year) appendectomy facial reconstruction surgery 1983 Micro ear surgery 1984 Right shoulder surgery 1993 hysterectomy 1994 Benign lesion removal 1995
--- OUTSIDE RECORDS SUMMARY | 2024-04-17 09:15 | XMS_ITS ---
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 Generated for Printi ng/Facammyg/eTransmitting on:?04/17/2024 09:15 AM EDT
--- OUTSIDE RECORDS SUMMARY | 2024-04-17 09:15 | XMS_ITS ---
Author Organization [facility] Julianne fredrick [place] Address [address] [place] [address] Care Team Providers Care Radiology Receptionist Name Role Phone Madhu Zimmerman MD Primary Care Provider Kate Marie Unavailable [phone] Allergies Allergen (clinical drug ingredient) Drug/Non Drug Allergy documented on EMR Reaction Allergy Type Onset Date Status codeine Codeine nausea and vomiting Drug Allergy Active Latex Latex rash Allergy Active morphine Morphine nausea and vomiting Drug Allergy Active Penicillin nausea and vomiting Drug Allergy Active REASON FOR VISIT Pcp-11/30, Painful nail(s) aggravated by shoes causing difficulty standing/walking Medications Medication SIG (Take, Route, Frequency, Duration) [...] No Points 0 Interpretation Negative Vital Signs Height 5ft8in in 01/30/2024 Weight 118 lbs 01/30/2024 BMI 17.94 kg/m2 01/30/2024 Blood pressure systolic 116 mm Hg 01/30/20 24 Blood pressure diastolic 60 mm Hg 024 Encounters Encounter Location Date Provider Diagnosis [facility] [address] [place] [address] 01/30/2024 Kate Juan Onychomycosis B35.1 and Pain in left toe(s) M79.675 Assessments Encounter Date Diagnosis (ICD Code) Assessment Notes Treatment Notes Treatment Clinical Notes Section Notes 01/30/2024 Onychomycosis (ICD-10 - B35.1) 01/30/2024 Pain in left toe(s) (ICD-10 - M79.675) Plan Of Treatment Next Appt Details Follow Up: prn, Reason: Progress Notes * TABITHARoberto NEFFPitaB: 947 (78 yo F)Acc No.[id number]:01/30/2024 Progress Notes Patient:?Jackie ELIZONDO Provider:?Kate Juan DPM :1945???Age:78 Y???Sex:Female D ate:01/30/2024 Address:[address] [place] [id number] Pcp:Madhu Zimmerman MD Subjective: * Chief Complaints: * ???Pcp-11/30Painful nail(s) aggravated by shoes causing difficulty standing/walking * HPI: ???Painful Nails:?Pt States Last PCP Visit:?Date:?11/22/2023 ?Nature:?tender, , thick, rips through sock.?Location:?Great toe, Left foot.?Duration:?several months- since partial nail avusion performed by different drop board worker.?Treatments:?None.? * ROS:?General/Constitutional:?Nausea?denies.?Vomiting?denies.?Hunger Thirst?denies.?Loss appetite?denies.?Chills?denies.?Fatigue?denies.?Fever?denies.?Night Sweats?denies.?Unexplained weight loss?denies.?Unexplained weight gain?denies.?HEENTM:?Dentures?denies.?Dizziness?denies.?Glasses/contacts?admits.?Retinopathy?de nies.?Blurred/double vision?denies.?TMJ?denies.?Discharge/drainage?denies.?Implants?denies.?Sore throat?denies.?Dental implants?denies.?Hard of hearing ?denies.?Difficulty chewing/swallowing/speaking?denies.?Nose bleeds?denies.?Sore mouth?denies.?Respiratory:?On Oxygen?denies.?Pneumonia/pleurisy?denies.?Bronchitis?denies.?Emphysema?denies.?C oughing?denies.?Cough blood?denies.?Shortness of breath?denies.?Wheezing?denies.?Cardiovascular:?Pacemaker?denies.?MVP?denies.?WPW?denies.?CHF?denies.?Heart attack?denies.?Septal defect?denies.?Rapid beat?denies.?Chest pain ?denies.?Atrial Fib.?denies.?Murmur/Palpitations?denies.?Gastrointestinal:?Hemorrhoids?denies.?Stomach/Abdominal pain?denies.?Dark blood stool?denies.?Irritable bowel ?denies.?Constipation?denies.?Diarrhea?denies.?Hematology:?Swelling?denies.?Clots?denies.?Varicose Veins?denies.?Bruising?denies.?Bleeding problem?denies.?Genitourinary:?Blood urine?denies.?Frequent/Painfu/urination/bladder control?denies.?Kidney stones?denies.?Infection (UTI)?denies.?Nephropathy?denies.?sex trans dis (STD)?denies.?Prostate?denies.?Musculoskeletal:?Hammertoes?denies.?Bunions?denies.?Back Pain?denies.?Muscle Cramps/ Resting?denies.?Muscle cramps / walking?denies.?Generalized aches and pains?denies.?Weakness?denies.?Integ.:?Grimaldo?denies.?Scars?denies.?Corns/calluses?denies.?Ingrown nails?denies.?Painful nails?denies.?Open Sores?denies.?Rashes?denies.?Neurologic:?Difficulty sleeping?denies.?Brain disorder?denies.?Numbness?denies.?Balance trouble?denies.?Confusion?denies.?Fainting/blackouts?denies.?Tingling?denies.?Tr emors?denies.? * Medical History:? * Surgical History:?appendecto my facial reconstruction surgery 1984Micro ear surgery 1985Right shoulder surgery 1994hysterectomy 1995Benign lesion removal 1995 * Hospitalization/Major Diagno stic Procedure:?Denies Past Hospitalization * Family History:?Mother: dece ased.?Father: .? * Social History:?Tobacco Use:?Tobacco use other than smoking?Are you an other tobacco user??No ?Tobacco Control (Standard)?Tobacco use:?Former smoker ?Additional Findings: Tobacco non-user?Ex-cigarette smoker ???Drugs/Alcohol:?Drugs?Have you used drugs other than those for medical reasons in the past 12 months??No ???Miscellaneous:?Caffeine: yes, frequency:. ?Children: yes. ?Exercise: no. ?Marital status: . 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 ???Drug/Alcohol:?AUDIT-C (Standard)?Did you have a drink containing alcohol in the past year??No ?Points?0 ?Interpretation?Negative * Medications:?TakingMetoprolo l Succinate 25 MG Capsule ER 24 Hour Sprinkle 1 capsule Orally Once a day Simvastatin 40 MG Tablet 1 tablet in the evening Orally Once a day Lysine 1000 MG Tablet as directed Orally Citric Acid-D Gluconic Acid Levothyroxine Sodium 50 MCG Tablet 1 tablet in the morning on an empty stomach Orally Once a day Medication List reviewed and reconciled with the patientTaking Metoprolol Succinate 25 MG Capsule ER 24 Hour Sprinkle 1 capsule Orally Once a day Taking Simvastatin 40 MG Tablet 1 tablet in the evening Orally Once a day Taking Lysine 1000 MG Tablet as directed Orally Taking Citric Acid-D Gluconic Acid Taking Levothyroxine Sodium 50 MCG Tablet 1 tablet in the morning on an empty stomach Orally Once a day Medication List reviewed and reconciled with the patient * Allergies:?Penicillin: nause a and vomiting - AllergyMorphine: nausea and vomiting - AllergyCodeine: nausea and vomiting - AllergyLatex: rash - Allergyyes[Allergies Verified] Objective: * Vitals:?Ht: 5ft8in, Wt: 118, BMI: 17.94, Shoe size: 9.5-10, BP: 116/60 mm Hg, Ht-cm: 172.72 cm, Wt-k.52 kg. * Examination: ???General Examination: ?GENERAL APPEARANCE:?Reveals a pleasant, alert, well-nourished, well- developed, well hydrated individual, who demonstrates proper attention to hygiene/body habitus, and is in no acute distress, Pt serves as own?historian for office visit today.?ORIENTED:?person, place, and time.?Dermatologic: ?SKIN FINDINGS:?Skin exam reveals normal texture, elasticity, and turgor. There are no masses. The interspaces are clear.?Nails: ?NAILS are:?Elongated, overgrown, dystrophic, lytic, greater than 3mm thick, discolored, with pain on palpation, TA, remaining nails without pathology.?Neurological: ?SENSORY:?Neurological exam reveals intact sensorium, pain sensation normal, vibration sensation intact, pinprick sensation is normal in the lower extremities, Pt denies, anesthesia, burning, paresthesia, tingling, B/L.?DEEP TENDON REFLEXES:?Achilles, 2/4, B/L.?Vascular: ?DP PULSES (B):?3/4, B/L.?PT PULSES (B):?3/4, B/L.?CAPILLARY FILL TIME:?immediate, all digits, B/L.?TROPHIC CONDITION-TEXTURE/ELASTICITY/TURGOR/HAIR GROWTH (B):?normal, B/L.?TEMPERTURE GRADIENT (C):?warm to cool, proximal to distal, B/L.?PIGMENTATION:?normal, B/L.?EDEMA (C):?absent, B/L.?Orthopedic: ?MUSCLE STRENGTH:?5/5 all groups in a symmetrical fashion , B/L.? Assessment: * Assessment: 1.?Pain in left toe(s) - M79 .675???2.?Onychomycosis - B35.1 (Primary)???Specify :Acute problem, Uncomplicated (3)??? Plan: * Treatment: * Procedure Codes:? * Preventive Medicine:? ??Counseling:?Discussion:?-03: Office or other outpatient visit for the evaluation and management of a new patient, which required a medically appropriate history and/or examination and LOW level of DECISION MAKING for: 1 STABLE ACUTE UNCOMPLICATED PROBLEM, 2 OR MORE MINOR PROBLEMS, OR 1 STABLE CHRONIC PROBLEM, THAT POSE(S) A LOW RISK FOR MORBIDITY/MORTALITY. The visit on the day of the encounter encompassed interpreting the data and educating the patient as to the nature of their condition, treatment options available according to their individual PMH, meds, allergies, and overall health/living conditions, as well as any potential risks or complications that may occur from a failure to adhere to, and participate in, the recommended course of therapy. The discussion included a complete verbal, and/or written explanation of the examination results, any x-rays taken, the proposed diagnosis, and outline of the treatment plan. A schedule for future care needs was also explained. The patient verbalized an understanding of the instructions at this time and agreed to be an active participant in their treatment. If the patient should think of any questions or concerns after the visit, I have encouraged the patient to call the office.?Fungal Nail Counseling:?The patient was counseled on the diagnosis, potential etiologies (including, but not limited to, environmental factors, genetic, immune deficiency), and the multiple treatment options for Onychomycosis. We discussed the risks and benefits of each option from performing no treatment, to ultraviolet light shoe treatment, to laser nail treatment, to applying topical antifungals, to taking oral antifungal medication, to surgical removal of the involved nail(s) with or without performing a matricectomy, or any combination thereof. We discussed the advantages and disadvantages of each of possible treatment and importance for adherence to all the recommended therapies for optimum success. This includes the necessity for weekly emery board self nail home debridements, and control the nail and skin environment as much as possible by only using a fresh, dry pair of shoes/socks each day, as well as keeping the skin as dry as possible through the use of sprays/powders if necessary. The patient was instructed to discard the emery board after use to prevent reinfection of the involved nail(s). We discussed the mycological and visual clinical effectiveness of topical vs oral antifungal treatments as well as each ones potential side effects and/or any patient- specific medication interactions. We discussed the reasons behind the important requirement of regular liver function testing with oral antifungal therapy for safety. Patient questions regarding use, dosage, successful outcomes, blood tests, and possible pharmaceutical interactions were reviewed and the patient verbalized that all answers were clearly understood. Nail was debrided today without incident. Patient stated she would like to proceed with regular debridement however would like this to be performed by the nurse at the [facility] as she could perform this service monthly. Patient was encouraged to return should this not treat her symptoms effectively or new problems arise.? * Follow Up:?prn * Images: * Sign off status: Completed true * Provider:?Kaet Juan DPM Date:?04/01/2023 Generated for Clau maharaj/Lashonda/eTransmitting on:?04/17/2024 09:14 AM EDT History and Physical Notes * HPI (History of Present Illness) Category Sub-Category Detail Notes Category Not es Painful Nails Duration: several months- since partial nail avusion performed by different drop board worker Location: Great toe, Left foot Nature: tender, , thick, rip s through sock Treatments: None Pt States Last PCP Visit: Date:: 11/22/2023 Examination Category Sub-Category Detail Notes Category Not es Neurological SENSORY: Neurological exa m reveals intact sensorium, pain sensation normal, vibration sensation intact, pinprick sensation is normal in the lower extremities, Pt denies, anesthesia, burning, paresthesia, tingling, B/L DEEP TENDON REFLEXES: Achilles, 2/4, B/L Dermatologic SKIN FINDINGS: Skin exam reveal s normal texture, elasticity, and turgor. There are no masses. The interspaces are clear Orthopedic MUSCLE STRENGTH: 5/5 all groups in a symm etrical fashion , B/L General Examination GENERAL APPEARANCE: Reveals a pleasant, alert, well- nourished, well-developed, well hydrated individual, who demonstrates proper attention to hygiene/body habitus, and is in no acute distress, Pt serves as own historian for office visit today ORIENTED: person, place, and t kevin Vascular DP PULSES (B): 3/4, B/L PT PULSES (B): 3/4, B/L CAPILLARY FILL TIME: immediate, all digi ts, B/L TEMPERTURE GRADIENT (C): warm to cool, p roximal to distal, B/L TROPHIC CONDITION-TEXTURE/ELASTICITY/TURGOR/HAIR GROWTH (B): normal, B/L EDEMA (C): absent, B/L PIGMENTATION: normal, B/L Nails NAILS are: Elongated, overg rown, dystrophic, lytic, greater than 3mm thick, discolored, with pain on palpation, TA, remaining nails without pathology
== END 2024-04-17 09:31 | disposition home or self-care (01) ==
LOC: HO.HMCFM 08:34
PROVIDERS: PCP Family Medicine; Visit Provider Family Medicine
DX: E11.9 Type 2 diabetes mellitus without complications (principal); R63.6 Underweight; C91.10 Chronic lymphocytic leukemia of B-cell type not having achieved remission; I10 Essential (primary) hypertension

== ENCOUNTER → 2024-04-17 08:34 | Outpatient (BNVA) | payer OTHER, SELFPAY | PROVIDERS: PCP Family Medicine; Visit Provider Family Medicine | DX: E11.9 Type 2 diabetes mellitus without complications (principal); R63.6 Underweight; C91.10 Chronic lymphocytic leukemia of B-cell type not having achieved remission; I10 Essential (primary) hypertension | CPT/HCPCS: 83036; 99212 ==

== ENCOUNTER 2024-04-18 13:50 | Outpatient (AMB) | payer OTHER, SELFPAY ==
--- NOTE | 2024-04-18 13:58 | MHC.OFFVIS ---
Vital Signs 04/18/24 13:59 Height 5 ft 8 in Weight 119 lb 0.794 oz BMI 18.1 BP 160/78 H Blood Pressure Location Lt brachial Position Sitting Pulse 78 Pulse Source Pulse Oximeter Intake Visit Reasons: 4m follow up Allergies acetaminophen [Vicodin] Allergy (Unknown, Verified 04/17/24 09:01) nausea and vomiting hydrocodone [Vicodin] Allergy (Unknown, Verified 04/17/24 09:01) nausea and vomiting penicillin V Allergy (Unknown, Verified 04/17/24 09:01) nausea and vomiting latex Adverse Reaction (Intermediate, Verified 04/17/24 09:01) Hives Codeine Sulfate Allergy (Unknown, Uncoded 01/03/24 14:09) nausea and vomiting Pentothal Allergy (Unknown, Uncoded 01/03/24 14:09) nausea and vomiting Medication List - Last Reconciled 04/18/24 by Dylon Oscar MD allopurinol 300 mg PO DAILY calcium citrate-vitamin D3 315 mg-6.25 mcg (250 unit) (Citracal + Vitamin D Maximum) 1 tab PO DAILY levothyroxine 50 mcg PO DAILY 90 days lysine 1,000 mg PO DAILY metoprolol succinate ER 25 mg PO DAILY simvastatin 40 mg PO DAILY 90 days [Toperol xl 25 mg one tab daily ] zanubrutinib (Brukinsa) 80 mg PO DAILY HPI Comments Details: Jackie returns for follow-up regarding cardiomyopathy. She was diagnosed with cardiomyopathy in 2021, after getting echocardiogram done for question of cardiac murmur. She has a history of CLL and being followed by Hematology at [facility]. She also has a history of bladder cancer under control. Overall, she states she feels good from cardiac. No symptoms whatsoever. No angina or shortness of breath or in fact anything along those lines. [facility] Medical History Chronic lymphocytic leukemia Bladder cancer Benign pigmented skin lesion Surgical History History of hysterectomy History of appendectomy Family History Father No problems noted. Mother No problems noted. Social History Housing: Apartment Patient Tobacco Use Status: Never used Tobacco e-Cigarette/Vaping Use: Never Used Second Hand Smoke Exposure: No service: No Current occupational status: retired Current occupational exposures/hazards: No Cognitive needs: No Hearing needs: No Vision needs: Yes (Patient wears precription glasses.) Review of Systems Const Denies weakness ENT Denies dizziness Card Denies chest pain, Denies chest pain with activity, Denies syncope, Denies rapid heart rate, Denies pedal edema, Denies edema, Denies leg edema, Denies lightheadedness, Denies palpitations, Denies dyspnea, Denies dyspnea on exertion and Denies orthopnea Resp Denies cough, Denies dyspnea and Denies dyspnea on exertion GI Denies hematochezia and Denies change in stool character Musc Denies abnormal gait, Denies muscle cramps, Denies muscle weakness, Denies numbness, Denies radiating pain into limb and Denies tingling Neuro Denies abnormal gait, Denies dizziness, Denies syncope, Denies numbness, Denies tingling and Denies weakness Endo Denies palpitations Physical Exam Vital Signs: Last Vital Signs Pulse 78 04/18/24 13:59 BP 160/78 H 04/18/24 13:59 BMI result Body Mass Index 18.1 Const General: comfortable and no acute distress Orientation/consciousness: patient oriented x3 HEENT Other: Unremarkable Head: Yes normal to inspection Neck Neck: Yes normal visual inspection Chest Chest palpation & inspection: normal inspection of the chest Resp Auscultation: clear to auscultation bilaterally Cardio Palpation: normal PMI Heart sounds: S1 normal heart sound present, S2 normal heart sound present, no gallops, no murmurs and no rubs GI Palpation (GI): Soft to palpation Back/Spine/Pelvis Other: unremarkable Skin General skin exam: no rashes or lesions noted Neuro General: patient oriented x3 Extrem General: Yes normal to inspection Psych Mental Status: mental status grossly normal Assessment & Plan Assessment & Plan (1) Cardiomyopathy: Code(s): I42.9 - Cardiomyopathy, unspecified Category: Medical Plan: In the most recent echocardiogram, LVEF 55-60%. Prior to that, 40-45%. Even earlier, 25-30%. In 2018, it was 60-65%. Myocardial perfusion imaging study shows normal perfusion. Cardiac MRI with LVEF of 43%. RVEF 49%. Thought to be from nonischemic cardiomyopathy. For meds, Coreg was replaced by metoprolol last time after finding of tachycardia on Holter. Somehow, she has accidentally stopped Entresto. We will need to check the recent [facility] labs and creatinine is within range, then resume it. (2) Nonrheumatic mitral valve regurgitation: Code(s): I34.0 - Nonrheumatic mitral (valve) insufficiency Category: Medical Plan: Echocardiogram shows [id number] mitral regurgitation. No specific interventions. (3) LBBB (left bundle branch block): Code(s): I44.7 - Left bundle-branch block, unspecified Category: Medical Plan: Chronic finding. (4) Atrial arrhythmia: Code(s): I49.8 - Other specified cardiac arrhythmias Category: Medical Plan: In the Holter, tachycardia episode at 150/Min. SVT versus flutter. Seems clinically much improved on Metoprolol. If recurrent palpitations, recheck Holter. (5) PVC (premature ventricular contraction): Code(s): I49.3 - Ventricular premature depolarization Category: Medical Plan: In the Holter monitor, PVC burden was 4.5%. Rare couplets, bigeminy, trigeminy. Continue beta-blockers. (6) Essential hypertension: Code(s): I10 - Essential (primary) hypertension Category: Medical Plan: Blood pressure is high today but apparently in the [facility] Again Entresto as above should help. Coding Level of Care Code Est Pt Level 4 (21716) Complex EM visit Add On G2211 Diagnoses Cardiomyopathy I42.9 Nonrheumatic mitral valve regurgitation I34.0 LBBB (left bundle branch block) I44.7 Atrial arrhythmia I49.8 PVC (premature ventricular contraction) I49.3 Essential hypertension I10
[2024-04-18 13:59] VITALS: BP 160/78; PULSE 78; BMI 18.1
--- OUTSIDE RECORDS SUMMARY | 2024-04-18 16:25 | XMS_ITS | Patient Health Record ---
Author Organization [facility] Julianne Stark Address [address] [place] [address] Care Team Providers Care Contact Lens Edge Buffer Name Role Phone Madhu Zimmerman MD Primary Care Provider Kate Marie Unavailable [phone] Allergies Allergen (clinical drug ingredient) Drug/Non Drug [...] Provider Speciality Internal M edicine [facility] Referred Provider Kate Juan Referred Address [address],[place],[address], Referred Provider Specialty Podiatry Referral Priority Routine [...] 01/30/2024 Encounters Encounter Location Date Provider Diagnosis [facility] [address] 01/30/2024 Kate Juan Onychomycosis B35.1 and Pain in left toe(s) M79.675 [facility] [address] 12/06/2023 Kate Juan Assessments Encounter Date Diagnosis (ICD Code) Assessment Notes Treatment Notes Treatment Clinical Notes Section Notes 01/30/2024 Pain in left toe(s) (ICD-10 - M79.675) 01/30/2024 Onychomycosis (ICD-10 - B35.1) Plan Of Treatment No Information Insurance Providers Payer Name Payer Address Payer Phone Subscriber Number Group Number Insured Name Patient Relationship to Insured Coverage Start Date Coverage End Date [facility] [address] [place] [id number] [phone] [id number] Jackie Elizondo Self - patient is the insured Medical (General) History Medical History History ICD Code Cancer Heart disease Mumps Chicken pox Surgical History Surgery Date(Month/Year) appendectomy facial reconstruction surgery 1983 Micro ear surgery 1984 Right shoulder surgery 1993 hysterectomy 1994 Benign lesion removal 1995
--- OUTSIDE RECORDS SUMMARY | 2024-04-18 16:25 | XMS_ITS ---
Author Organization 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 Generated for Printi ng/Facammyg/eTransmitting on:?04/18/2024 04:25 PM EDT
--- OUTSIDE RECORDS SUMMARY | 2024-04-18 16:25 | XMS_ITS ---
Author Organization [facility] Julianne fredrick [place] Address [address] [facility] [place] [address] Care Team Providers Care Sheet Metal Production Worker Name Role Phone Madhu Zimmerman MD Primary Care Provider Kate Marie Unavailable [phone] Allergies Allergen (clinical drug ingredient) Drug/Non Drug [...] 024 Encounters Encounter Location Date Provider Diagnosis [facility] [address] [place] [address] 01/30/2024 Kate Juan Onychomycosis B35.1 and Pain in left toe(s) M79.675 Assessments Encounter Date Diagnosis (ICD Code) Assessment Notes Treatment Notes Treatment Clinical Notes Section Notes 01/30/2024 Onychomycosis (ICD-10 - B35.1) 01/30/2024 Pain in left toe(s) (ICD-10 - M79.675) Plan Of Treatment Next Appt Details Follow Up: prn, Reason: Progress Notes * TABITHARoberto NEFFPitaB: 947 (78 yo F)Acc No.[id number]:01/30/2024 Progress Notes Patient:?Jackie ELIZONDO Provider:?Kate Juan DPM :1945???Age:78 Y???Sex:Female D ate:01/30/2024 Address:[address] [place] [phone] Pcp:Madhu Zimmerman MD Subjective: * Chief Complaints: * ???Pcp-11/30Painful nail(s) aggravated by shoes causing difficulty standing/walking * HPI: ???Painful Nails:?Pt States Last PCP Visit:?Date:?11/22/2023 ?Nature:?tender, , thick, rips through sock.?Location:?Great toe, Left foot.?Duration:?several months- since partial nail avusion performed by different count team member.?Treatments:?None.? * ROS:?General/Constitutional:?Nausea?denies.?Vomiting?denies.?Hunger Thirst?denies.?Loss appetite?denies.?Chills?denies.?Fatigue?denies.?Fever?denies.?Night Sweats?denies.?Unexplained weight loss?denies.?Unexplained [...] no. ?Marital status: . 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 ???Drug/Alcohol:?AUDIT-C (Standard)?Did you have a drink containing [...] be performed by the nurse at the [facility] as she could perform this service monthly. Patient was encouraged to return should this not treat her symptoms effectively or new problems arise.? * Follow Up:?prn * Images: * Sign off status: Completed true * Provider:?Kate Juan DPM Date:?04/01/2023 Generated for Clau maharaj/Lashonda/eTransmitting on:?04/18/2024 04:25 PM EDT History and Physical Notes * HPI (History of Present Illness) Category Sub-Category Detail Notes Category Not es Painful Nails Duration: several months- since partial nail avusion performed by different count team member Location: Great toe, Left foot Nature: tender, [...]
== END 2024-04-18 14:42 | disposition home or self-care (01) ==
LOC: HO.HCS 13:51
PROVIDERS: PCP Family Medicine; Visit Provider Internal Medicine
DX: I42.9 Cardiomyopathy, unspecified (principal); I34.0 Nonrheumatic mitral (valve) insufficiency; I44.7 Left bundle-branch block, unspecified; I49.8 Other specified cardiac arrhythmias; I49.3 Ventricular premature depolarization; I10 Essential (primary) hypertension
CPT/HCPCS: 99214

== ENCOUNTER → 2024-04-18 13:50 | Outpatient (BNVA) | payer OTHER, SELFPAY | PROVIDERS: PCP Family Medicine; Visit Provider Internal Medicine | DX: I42.9 Cardiomyopathy, unspecified (principal); I34.0 Nonrheumatic mitral (valve) insufficiency; I44.7 Left bundle-branch block, unspecified; I49.8 Other specified cardiac arrhythmias; I49.3 Ventricular premature depolarization; I10 Essential (primary) hypertension | CPT/HCPCS: 99212 ==

== ENCOUNTER 2024-07-19 08:39 | Outpatient (AMB) | payer OTHER, SELFPAY ==
--- NOTE | 2024-07-19 08:49 | MHC.PC.OV ---
Vital Signs 07/19/24 09:00 Height 5 ft 8 in Weight 119 lb 6 oz BMI 18.1 BP 130/60 Blood Pressure Location Lt brachial Position Sitting Respiration 14 Pulse 68 Pulse Source Pulse Oximeter Temp 97.3 F Temp Source Oral Pulse Oximetry (%) 96 Oxygen Delivery Method Room Air Intake Visit Reasons: f/u DM, chronic conditions Intake Note: patient is scheduled to follow up on dm and chronic conditions Plating Department Helper Required: No Allergies acetaminophen [Vicodin] Allergy (Unknown, Verified 07/19/24 08:58) nausea and vomiting hydrocodone [Vicodin] Allergy (Unknown, Verified 07/19/24 08:58) nausea and vomiting penicillin V Allergy (Unknown, Verified 07/19/24 08:58) nausea and vomiting latex Adverse Reaction (Intermediate, Verified 07/19/24 08:58) Hives Codeine Sulfate Allergy (Unknown, Uncoded 01/03/24 14:09) nausea and vomiting Pentothal Allergy (Unknown, Uncoded 01/03/24 14:09) nausea and vomiting Medication List - Last Reconciled 07/19/24 by Madhu Zimmerman MD allopurinol 300 mg PO DAILY calcium citrate-vitamin D3 315 mg-6.25 mcg (250 unit) (Citracal + Vitamin D Maximum) 1 tab PO DAILY levothyroxine 50 mcg PO DAILY 90 days lysine 1,000 mg PO DAILY metoprolol succinate ER 25 mg PO DAILY sacubitril-valsartan 49-51 mg (Entresto) 1 tab PO BID 90 days simvastatin 40 mg PO DAILY 90 days [Toperol xl 25 mg one tab daily ] zanubrutinib (Brukinsa) 80 mg PO DAILY Tobacco use date assessed: 06/17/23 Dental Screening Dental Screen Date: 06/17/23 HPI f/u DM, chronic conditions HPI Details 78 y/o female presents to f/u hypertension, diet controlled diabetes. Followed by Hematology-Oncology for CLL and followed by cardiology. Blood pressure today 130/60, 68p. She is on Entresto 49-51 mg b.i.d, metoprololl 25mg daily. Last A1c 04/17/24 6.2%. A1c today 07/19/24 6.1%. [facility] Medical History Chronic lymphocytic leukemia Bladder cancer Benign pigmented skin lesion Surgical History History of hysterectomy History of appendectomy Family History Father No problems noted. Mother No problems noted. Social History Housing: Apartment Patient Tobacco Use Status: Never used Tobacco e-Cigarette/Vaping Use: Never Used Second Hand Smoke Exposure: No service: No Current occupational status: retired Current occupational exposures/hazards: No Cognitive needs: No Hearing needs: No Vision needs: Yes (Patient wears precription glasses.) Questionnaire Thrive Questionnaire Date Thrive assessed: 02/21/24 I am a: Patient What is your living situation today?: I have a steady place to live Within the past 12 months, did the food you bought not last and you didn't have the money to get more?: Never true Within the past 12 months, did you worry whether your food would run out before you got money to buy more?: Never true Do you have trouble paying for medicines?: No Do you have trouble getting transportation to medical appointments?: No Do you have trouble paying your heating and electricity bill?: No Do you have trouble taking care of your child, family member or friend?: No Do you have trouble with day-to-day activities such as bathing, preparing meals, shopping, managing finances, etc.?: No Are you currently unemployed and looking for a job?: No Are you interested in more education?: No Please select the resources that you would like help with: None Currently or been in a relationship where the following occur: No concerns reported THRIVE Score: 0 MAGED-7 AMB Questionnaire MAGED-7 Date MAGED - 7 assessed: 03/17/23 Source: Developed by Drs. Alvin Brandon, Jeny Chaidez, Mario Lopez and colleagues, with an educational stalin from [employer]. Review of Systems Const Denies chills, Denies fatigue, Denies fever(s), Denies headache(s) and Denies weakness ENT Denies dizziness and Denies headache(s) Card Denies dyspnea Resp Denies cough, Denies dyspnea, Denies wheezing and Denies other (shortness of breath) Musc Denies numbness and Denies tingling Neuro Denies dizziness, Denies headache(s), Denies numbness, Denies tingling and Denies weakness Psych Denies anxiety and Denies depression Endo Denies fatigue Aller/Immun Denies wheezing Physical exam (Primary Care) Vital Signs: Last Vital Signs Temp 97.3 F 07/19/24 09:00 Pulse 68 07/19/24 09:00 Resp 14 07/19/24 09:00 BP 130/60 07/19/24 09:00 Pulse Ox 96 07/19/24 09:00 Oxygen Delivery Method Room Air 07/19/24 09:00 BMI result Body Mass Index 18.1 Tobacco/Smoking Status: Tobacco use Status Tobacco use date assessed 06/17/23 07/19/24 08:49 Patient Tobacco Use Status Never used Tobacco 07/19/24 08:49 e-Cigarette/Vaping Use Never Used 07/19/24 08:49 Thrive Assessment: Date of Thrive Assessment Date Thrive assessed 02/21/24 07/19/24 08:49 Currently or been in a relationship where the following occur: No concerns reported Const General: well developed; No acute distress Nutritional Appearance: well nourished Orientation/consciousness: patient oriented x3 [facility] Head: Yes normocephalic and Yes atraumatic Eyes General: appearance normal, both eyes and all related structures Pupils: Equal, round and reactive pupils present EOM: EOMs intact bilaterally Resp Effort & Inspection: normal respiratory effort Auscultation: clear to auscultation bilaterally Cardio Rate: regular rate Rhythm: regular rhythm Heart sounds: S1 normal heart sound present, S2 normal heart sound present, no gallops, no murmurs and no rubs Neuro General: patient oriented x3 and gait normal Cranial nerves: Yes Equal, round and reactive pupils present Psych Affect: normal affect Coding Level of Care Code Est Pt Level 4 (51804) Diagnoses Hypertension I10 Chronic lymphocytic leukemia C91.10 Cardiomyopathy I42.9 Diet-controlled diabetes mellitus E11.9 Assessment & Plan Assessment & Plan (1) Hypertension: Code(s): I10 - Essential (primary) hypertension Category: Medical Plan: Blood?pressure?is fairly well?controlled.??Goal?is?less?than?130/80 Continue?current?medications (2) Chronic lymphocytic leukemia: Code(s): C91.10 - Chronic lymphocytic leukemia of B-cell type not having achieved remission Category: Medical Plan: Stable (3) Cardiomyopathy: Code(s): I42.9 - Cardiomyopathy, unspecified Category: Medical Plan: Stable Most?recent?echo?shows?EF?in?normal?range?though?MRI?EF?is?a?little?lower Continue?Entresto Follow-up?with?Cardiology?as?recommended (4) Diet-controlled diabetes mellitus: Code(s): E11.9 - Type 2 diabetes mellitus without complications Category: Medical Plan: A1c?6.1%.??Good?control.??Goal?is?less?than?7% Continue?diet-control
--- OUTSIDE RECORDS SUMMARY | 2024-07-19 08:56 | XMS_ITS | Encounter Summary ---
Author Organization [facility] Address [id number] [place] [id number] Care Team Providers Care Communications Consultant Name Role Phone Madhu Zimmerman MD Primary Care Provider Encounter Details Date Type Department Care Team (Late st Contact Info) Description 07/05/2024 Lab Requisition [facility] - Main Lab [address] [facility] [place] [address] Edmond Caruso MD [address] [facility] [address] [place] [address] Neoplasm of unspecified behavior of bladder Social History Tobacco Use Types Packs/Day Years Used Date Smoking Tobacco: Never Assessed Comments Unknown Sex and Gender Information Value Date Recorded Sex Assigned at Not on file Legal Sex Female 8:18 PM EST Gender Identity Not on file Sexual Orientation Not on file documented as of this encounter Plan of Treatment Pending Results Name Type Priority Associated Diagnoses Date /Time Anatomic pathology outside consult Pathology and Cytology Routine Neoplasm of unspecified behavior of bladder 06/28/2024 12:00 AM EDT documented as of this encounter Visit Diagnoses Diagnosis Neoplasm of unspecified behavior of bladder documented in this encounter Care Teams Communications Consultant Relationship Specialty Start Date End Date Madhu Zimmerman MD [address] [place] [address] [address] [place], [place] PCP - General 12/10/22 documented as of this encounter
[2024-07-19 09:00] VITALS: BP 130/60; PULSE 68; RESP 14; TEMP 36.3; O2SAT 96; BMI 18.1
== END 2024-07-19 09:18 | disposition home or self-care (01) ==
LOC: HO.HMCFM 08:39
PROVIDERS: PCP Family Medicine; Visit Provider Family Medicine
DX: I10 Essential (primary) hypertension (principal); C91.10 Chronic lymphocytic leukemia of B-cell type not having achieved remission; I42.9 Cardiomyopathy, unspecified; E11.9 Type 2 diabetes mellitus without complications

== ENCOUNTER → 2024-07-19 08:39 | Outpatient (BNVA) | payer OTHER, SELFPAY | PROVIDERS: PCP Family Medicine; Visit Provider Family Medicine | DX: E11.9 Type 2 diabetes mellitus without complications (principal); I10 Essential (primary) hypertension; C91.10 Chronic lymphocytic leukemia of B-cell type not having achieved remission; I42.9 Cardiomyopathy, unspecified | CPT/HCPCS: 83036; 99212 ==